=== PATIENT | female | born 1980 | race Caucasian/White ===

== ENCOUNTER 2020-12-22 10:28 | Outpatient (REF) | payer OTHER, SELFPAY | END 2020-12-22 10:29 | disposition home or self-care (01) | LOC: HO.HAP 10:28 | PROVIDERS: Visit Provider Internal Medicine | DX: Z46.1 Encounter for fitting and adjustment of hearing aid (principal); H90.3 Sensorineural hearing loss, bilateral | CPT/HCPCS: 92593 ==

== ENCOUNTER 2021-01-05 10:57 | Outpatient (REF) | payer OTHER, SELFPAY | END 2021-01-05 10:58 | disposition home or self-care (01) | LOC: HO.HAP 10:57 | PROVIDERS: PCP Internal Medicine; Visit Provider Internal Medicine | DX: Z13.89 Encounter for screening for other disorder (principal) ==

== ENCOUNTER 2021-01-06 11:26 | Outpatient (REF) | payer OTHER, SELFPAY ==
--- NOTE | ~2021-01-06 | MM_ITS ---
EXAMINATION: MM SCREENING DIGITAL BREAST TOMOSYNTHESIS, BILATERAL CLINICAL INFORMATION: Screening. Asymptomatic. The lifetime risk of breast cancer based on the Tyrer-Cuzick Model is 12.6%. COMPARISON: Mammography: None TECHNIQUE: Digital breast tomosynthesis is performed in both the craniocaudal and mediolateral oblique views along with computer-aided detection (CAD). Synthesized 2D images are generated from the tomosynthesis. FINDINGS: There are scattered areas of fibroglandular density (ACR BI-RADS breast composition Category b). There are no significant masses, abnormal calcifications, or other abnormalities. MM/MM tomosynthesis screening BI IMPRESSION: There are no significant changes from prior study. ASSESSMENT: BI-RADS 1: Negative RECOMMENDATION: Routine annual mammography screening. This patient's information was entered into a reminder system with a target due date for their next mammogram.
== END 2021-01-06 11:27 | disposition home or self-care (01) ==
LOC: HO.MAMMO 11:26
PROVIDERS: PCP Internal Medicine; Visit Provider Internal Medicine
DX: Z12.31 Encounter for screening mammogram for malignant neoplasm of breast (principal)
CPT/HCPCS: 77063; 77067

== ENCOUNTER 2021-01-20 13:25 | Outpatient (REF) | payer OTHER, SELFPAY | END 2021-01-20 13:26 | disposition home or self-care (01) | LOC: HO.HAP 13:25 | PROVIDERS: Visit Provider Internal Medicine | DX: Z46.1 Encounter for fitting and adjustment of hearing aid (principal); H90.6 Mixed conductive and sensorineural hearing loss, bilateral | CPT/HCPCS: V5014; V5266 ==

== ENCOUNTER 2021-03-01 10:11 | Outpatient (REF) | payer OTHER, SELFPAY ==
[2021-03-01 11:37] LABS: MANUAL DIFF FLAG NO
[2021-03-01 11:51] LABS: Basophils Absolute Auto 0.1 X10*3/uL (0.0-0.2); Basophils Percent Auto 0.4 % (0-2); Eosinophils Percent Auto 0.3 % (0-4); Hematocrit 46.3 % (37-47); Hemoglobin 15.6 g/dl (12.0-16.0); Imm Gran Abs Auto 0.05 X10*3/uL (0.00-0.03); Imm Gran Pct Auto 0.4 % (0.0-0.4); Lymphocytes Absolute Auto 1.2 X10*3/uL (1.2-4.9); Lymphocytes Percent Auto 9.5 % (20-40); Mean Corpuscular HGB Conc 33.7 g/dl (31.0-35.0); Mean Corpuscular Hemoglobin 32.9 pg (27.0-33.0); Mean Corpuscular Volume 97.7 fL (80-98); Mean Platelet Volume 10.5 fL (9.4-12.3); Monocytes Absolute Auto 0.6 X10*3/uL (0.1-1.2); Monocytes Percent Auto 4.5 % (2-11); Neutrophils Percent Auto 84.9 % (45-73); Platelet Count 352 X10*3/uL (160-400); Red Blood Count 4.74 X10*6/uL (4.20-5.50); Red Cell Distribution Width 12.5 % (11.0-16.0)
[2021-03-01 12:35] LABS: Alanine Aminotransferase 10 U/L (0-31); Albumin Level 4.4 g/dL (3.5-5.0); Alkaline Phosphatase 68 U/L (39-117); Anion Gap 15 (12-20); Aspartate Amino Transferase 14 U/L (5-31); Bilirubin Total 1.8 mg/dL (0.0-1.0); Blood Urea Nitrogen 11 mg/dL (9-16); Calcium 9.5 mg/dL (8.4-10.2); Carbon Dioxide 26 mmol/L (22-29); Chloride 104 mmol/L (96-108); Cholesterol 154 mg/dL; Estimated Glomerular Filt Rate > 60; Glucose Random 104 mg/dL (60-115); Potassium 3.9 mmol/L (3.3-5.1); Sodium 141 mmol/L (135-145); Total Protein 7.2 g/dL (6.5-8.0)
== END 2021-03-01 10:12 | disposition home or self-care (01) ==
LOC: HO.LAB 10:11
PROVIDERS: PCP Internal Medicine; Visit Provider Internal Medicine
DX: Z00.00 Encounter for general adult medical examination without abnormal findings (principal); R63.4 Abnormal weight loss
CPT/HCPCS: 36415; 80053; 82465; 85025

== ENCOUNTER 2021-03-03 11:57 | Outpatient (REF) | payer OTHER, SELFPAY ==
[2021-03-03 12:38] LABS: MANUAL DIFF FLAG NO
[2021-03-03 12:43] LABS: Basophils Absolute Auto 0.1 X10*3/uL (0.0-0.2); Basophils Percent Auto 0.5 % (0-2); Eosinophils Percent Auto 0.4 % (0-4); Hematocrit 44.7 % (37-47); Hemoglobin 15.1 g/dl (12.0-16.0); Imm Gran Abs Auto 0.03 X10*3/uL (0.00-0.03); Imm Gran Pct Auto 0.3 % (0.0-0.4); Lymphocytes Absolute Auto 1.9 X10*3/uL (1.2-4.9); Lymphocytes Percent Auto 18.9 % (20-40); Mean Corpuscular HGB Conc 33.8 g/dl (31.0-35.0); Mean Corpuscular Volume 97.8 fL (80-98); Monocytes Absolute Auto 0.4 X10*3/uL (0.1-1.2); Monocytes Percent Auto 3.7 % (2-11); Neutrophils Absolute Auto 7.6 X10*3/uL (2.0-8.3); Neutrophils Percent Auto 76.2 % (45-73); Platelet Count 328 X10*3/uL (160-400); Red Blood Count 4.57 X10*6/uL (4.20-5.50); Red Cell Distribution Width 12.4 % (11.0-16.0)
[2021-03-03 13:17] LABS: C Reactive Protein 0.09 mg/dL (< or = 0.50)
== END 2021-03-03 11:58 | disposition home or self-care (01) ==
LOC: HO.LAB 11:57
PROVIDERS: PCP Internal Medicine; Visit Provider Internal Medicine
DX: D72.829 Elevated white blood cell count, unspecified (principal); R53.83 Other fatigue
CPT/HCPCS: 36415; 85025; 86140

== ENCOUNTER 2021-03-04 10:35 | Outpatient (REF) | payer OTHER, SELFPAY ==
[2021-03-04 12:18] LABS: C Reactive Protein 0.06 mg/dL (< or = 0.50)
[2021-03-04 12:34] LABS: Free T4 (Free Thyroxine) 1.22 ng/dL (0.71-1.85); Thyroid Stimulating Hormone 1.14 uIU/mL (0.32-4.0)
[2021-03-04 13:22] LABS: Vitamin B12 422 pg/mL (200-900)
[2021-03-04 13:47] LABS: CT PCR NOT DETECTED (Not Detect.); NG PCR NOT DETECTED (Not Detect.)
[2021-03-05 08:28] LABS: Syphilis Screen Nonreactive (Nonreactive)
== END 2021-03-04 10:36 | disposition home or self-care (01) ==
LOC: HO.LAB 10:35
PROVIDERS: PCP Internal Medicine; Visit Provider Internal Medicine
DX: Z11.3 Encounter for screening for infections with a predominantly sexual mode of transmission (principal); R51.9 Headache, unspecified; R53.83 Other fatigue; R55 Syncope and collapse
CPT/HCPCS: 82550; 82607; 84439; 84443; 86140; 86780; 87491; 87591

== ENCOUNTER 2021-03-15 14:08 | Outpatient (REF) | payer OTHER, SELFPAY ==
--- NOTE | ~2021-03-15 | CT_ITS ---
EXAMINATION: CT HEAD WITHOUT CONTRAST CLINICAL INFORMATION: New onset headache. BP changes. COMPARISON: None. TECHNIQUE: Contiguous axial imaging was performed from the skull base to vertex without intravenous administration of contrast. This CT examination was performed using dose optimization techniques as appropriate, variously including the following: *Automated exposure control *Adjustment of mA and/or kV according to patient size (this includes techniques or standardized protocols for targeted exams where dose is matched to indication/reason for exam; i.e. extremities or head) *Use of iterative reconstruction technique DLP: 616 mGy-cm. FINDINGS: There is no evidence of acute intracranial hemorrhage or territorial infarction. No abnormal mass effect or midline shift is seen. Anderson to white matter differentiation is well preserved. No extra-axial fluid collections are identified. The ventricles are normal in size. There is no abnormal attenuation within the brain parenchyma. The osseous structures and soft tissues are normal. The mastoid air cells and visualized portions of the paranasal sinuses are well aerated. CT/CT head/brain wo con IMPRESSION: No acute intracranial pathology.
== END 2021-03-15 14:09 | disposition home or self-care (01) ==
LOC: HO.CT 14:08
PROVIDERS: PCP Internal Medicine; Visit Provider Internal Medicine
DX: G44.209 Tension-type headache, unspecified, not intractable (principal); R42 Dizziness and giddiness
CPT/HCPCS: 70450

== ENCOUNTER 2021-04-12 14:13 | Outpatient (REF) | payer OTHER, SELFPAY ==
[2021-04-13 01:59] LABS: CT PCR NOT DETECTED (Not Detect.); NG PCR NOT DETECTED (Not Detect.)
[2021-04-13 09:14] LABS: BV Int Neg Control Negative (Negative)
[2021-04-13 09:15] LABS: BV Int Pos Control Positive (Positive)
[2021-04-14 21:01] LABS: C. Trachomatis RNA TMA, Throat NOT DETECTED (NOT DETECTED); N. gonorrhoeae RNA TMA, Throat NOT DETECTED (NOT DETECTED)
[2021-04-15 06:17] LABS: HPV mRNA E6/E7 rflx Not Detected (Not Detected)
== END 2021-04-12 14:14 | disposition home or self-care (01) ==
LOC: HO.LAB 14:13
PROVIDERS: PCP Internal Medicine; Visit Provider Advanced Practice Midwife
DX: Z01.419 Encounter for gynecological examination (general) (routine) without abnormal findings (principal); Z11.51 Encounter for screening for human papillomavirus (HPV); Z11.3 Encounter for screening for infections with a predominantly sexual mode of transmission; Z20.2 Contact with and (suspected) exposure to infections with a predominantly sexual mode of transmission; A63.0 Anogenital (venereal) warts; Z87.42 Personal history of other diseases of the female genital tract
CPT/HCPCS: 81025; 87480; 87491; 87510; 87591; 87624; 87660; 88142

== ENCOUNTER 2021-04-14 13:02 | Outpatient (REF) | payer OTHER, SELFPAY ==
[2021-04-14 14:54] LABS: Syphilis Screen Nonreactive (Nonreactive)
[2021-04-15 09:20] LABS: HBsAGNum1 0.22 S/CO (0.00-0.99); HIV AB/AG Nonreactive (Nonreactive); HIV Num 1 0.07 S/CO (0.00-0.99); Hepatitis B Surface Antigen Negative (Negative); ~Hepatitis C Antibody Nonreactive (Nonreactive)
== END 2021-04-14 13:03 | disposition home or self-care (01) ==
LOC: HO.LAB 13:02
PROVIDERS: PCP Internal Medicine; Visit Provider Advanced Practice Midwife
DX: A63.0 Anogenital (venereal) warts (principal); Z20.2 Contact with and (suspected) exposure to infections with a predominantly sexual mode of transmission; Z87.42 Personal history of other diseases of the female genital tract; Z30.012 Encounter for prescription of emergency contraception
CPT/HCPCS: 36415; 86780; 86803; 87340; 87389

== ENCOUNTER 2021-06-04 10:27 | Outpatient (REF) | payer OTHER, SELFPAY ==
[2021-06-10 06:41] LABS: HPV mRNA E6/E7 rflx Not Detected (Not Detected)
== END 2021-06-04 10:28 | disposition home or self-care (01) ==
LOC: HO.LAB 10:27
PROVIDERS: PCP Internal Medicine; Visit Provider Advanced Practice Midwife
DX: Z12.4 Encounter for screening for malignant neoplasm of cervix (principal); Z11.51 Encounter for screening for human papillomavirus (HPV); A63.0 Anogenital (venereal) warts; K64.9 Unspecified hemorrhoids
CPT/HCPCS: 56501; 87624; 88142; 99212

== ENCOUNTER → 2021-06-11 13:08 | Outpatient (BNVA) | payer OTHER, SELFPAY | PROVIDERS: PCP Internal Medicine; Visit Provider Advanced Practice Midwife | DX: A63.0 Anogenital (venereal) warts (principal) | CPT/HCPCS: 99212 ==

== ENCOUNTER → 2021-07-21 13:33 | Outpatient (BNVA) | payer OTHER, SELFPAY | PROVIDERS: PCP Internal Medicine; Visit Provider Advanced Practice Midwife | DX: A63.0 Anogenital (venereal) warts (principal) | CPT/HCPCS: 56501; 99212 ==

== ENCOUNTER → 2021-09-16 10:32 | Outpatient (BNVA) | payer OTHER, SELFPAY | PROVIDERS: PCP Internal Medicine; Referring Provider Internal Medicine; Visit Provider Internal Medicine Gastroenterology | DX: A63.0 Anogenital (venereal) warts (principal); K64.9 Unspecified hemorrhoids | CPT/HCPCS: 99202 ==

== ENCOUNTER 2021-12-06 12:18 | Day surgery (SDC) | payer OTHER, SELFPAY ==
[2021-12-06 12:39] VITALS: BMI 26.0
[2021-12-06 12:48] VITALS: BP 122/79; PULSE 91; RESP 18; TEMP 37; O2SAT 96; BMI 26.0
[2021-12-06 12:56] LABS: UPreg QC Valid YES; Urine Pregnancy NEGATIVE (NEGATIVE)
--- NOTE | 2021-12-06 13:04 | MHC.SHP ---
Pre-Procedural Eval Section A Date of Service: 12/06/21 The patient is an INPATIENT: No The History & Physical has been completed within 30 days and I have reviewed it.: No Section B Chief Complaint: Colon cancer screening Anogenital (venereal) warts Details of Present Illness: Colon cancer screen, chronic constipation, rectal bleeding, hemorrhoids, condyloma acuminata Relevant Family History (Specify if Yes): No Relevant Social History: Tobacco Use Present Medications: see Short Stay Collaborative assessment Medical History: No relevant PMH History of Previous Operations: No relevant previous surgery Allergies: Allergies Allergy/AdvReac Type Severity Reaction Status Date / Time No Known Allergies Allergy Verified 09/16/21 10:36 Review of Systems Sugical H&P ROS: Negative: Constitution, Cardiovascular and Respiratory and Yes, Specify: Gastrointestinal Exam Surgical H&P Exam: Normal: Heart, Normal: Lungs, Normal: Extremities and Normal: Abdomen Plan Diagnosis/Plan: Unchanged I have reviewed the history and physical and performed a pertinent physical examination on my patient. No changes have occurred unless specified.
--- NOTE | 2021-12-06 13:05 | P.BOP_ITS ---
Brief Operative Note Date of Service: 12/06/21 Pre-op diagnosis: Colon cancer screen, chronic constipation, rectal bleeding, hemorrhoids, condyloma acuminata Post-op diagnosis: other (Colon polyp, diverticulosis, hemorrhoids, anal warts) Procedure: COLONOSCOPY TILL CECUM WITH BIOPSIES AND SNARE POLYPECTOMY Consent: Indications for the procedure and potential complications of bleeding, perforation, reaction to medications and missed diagnosis were discussed with the patient and informed consent was obtained. Instrument: Olympus PCF H 190 L variable stiffness pediatric colonoscope Monitoring: Vital signs and clinical assessment, intermittent blood pressure monitoring, continuous EKG monitoring, Pulse oximetry and Carbon Dioxide monitoring were done throughout the procedure. Colon withdrawl time was 12 minutes. Procedure: The patient was placed in the left lateral decubitis position and pre-procedure medications were administered. After a digital rectal examination of the ano-rectum, the video colonoscope was inserted into the rectum and advanced through the colon to the cecum. The colonoscope was slowly withdrawn in a retrograde panoramic fashion and the colon mucosa was carefully examined including a retroflexed view of the rectum. Findings and interventions are described below. Procedure Difficulty: Without difficulty Findings: Terminal Ileum: Not evaluated Cecum: Normal Ascending Colon: Normal Transverse Colon: Normal Descending Colon: Normal Sigmoid Colon: A 10 mm sessile polyp removed with a cold snare and small amount of residual polyp removed with a cold bx. Moderate diverticulosis Rectum: Normal Ano-rectum: Moderate internal hemorrhoids Perianal warts. Colon preparation: Good Impression and Post Procedure Diagnosis: Colonoscopy Findings: One medium sized polyp removed Moderate diverticulosis seen in the Sigmoid colon Moderate hemorrhoids on retroflexed exam. Perianal warts. Plan: Await pathology results Patient has an appointment on 02/10/22 in the GI Clinic with Chavez Woods M.D.. Repeat Colonoscopy interval based on path results - in 3 years if polyps are adenomatous and 10 years if polyps are hyperplastic. Above findings were reviewed with the patient and colon polyps, hemorrhoids and diverticulosis handouts were given in the discharge area. She is being referred to Dr Stanton for management of rica-anal warts. Surgeon: Chavez Woods MD Anesthesia: MAC (Dr Martinez) Was an Package Worker used for this Procedure?: Yes Package Worker: Paty Valerio Estimated blood loss (mL): 0 Pathology: other (A. sigmoid polyp) Condition: stable Disposition: PACU
--- NOTE | 2021-12-06 13:08 | HO.ANESPROP2 ---
[facility] Active Problems Active Problems: All Active Problems (Updated 06/17/21 @ 11:49 by Shantal Guzman CNM) Hemorrhoids (Acute) Condyloma acuminata (Acute) Encounter for emergency contraception (Acute) Hx of abnormal cervical Pap smear (Acute) Potential exposure to STD (Acute) Family History Family history of problems with anesthesia: No Surgical History History of Problems with Anesthesia: No Social History Social History Are you a primary healthcare economics manager to a significant other at home: No Do you presently have visiting nurse or other home services: No Alcohol intake: current Alcohol intake frequency: 0-2 drinks per day Patient Tobacco Use Status: Current everyday Tobacco user Tobacco use type: Cigarette Cigarette Packs Per Day: 0.5 Cigarettes Per Day: 10.0 Smoked in Last 30 Days: Yes Patient Interested in Nicotine Replacement: No Patient Given Instructions on How to Stop Smoking: No Second Hand Smoke Exposure: No Use of substances other than those prescribed or required for medical reasons: No Have you been hit, kicked, punched, or otherwise hurt by someone within the past year? If so, by whom?: No Are you DNR?: No Advance Directives: No Advance Directives Information Provided: Yes Recently lost weight without trying: No Nutrition Risks: No Nutritional Risk Patient : No Gender identity: Female Meds Allergies Allergy/AdvReac Type Severity Reaction Status Date / Time No Known Allergies Allergy Verified 09/16/21 10:36 Exam Exam Date and Time: December 06, 2021 1308 Height,Weight and Vital Signs: Height 5 ft 3 in Weight 66.678 kg Last Vital Signs Temp 98.6 F 12/06/21 12:48 Pulse 91 12/06/21 12:48 Resp 18 12/06/21 12:48 BP 122/79 12/06/21 12:48 Pulse Ox 96 12/06/21 12:48 Pertinent Lab Results Pertinent Lab Results: Laboratory Tests 12/06/21 12:40 Urine Test NEGATIVE Airway Mallampati Class: II TM Dist: >3cm Neck ROM: Full Heart: rrr Lungs: cta Assessment and Plan Assessment Anesthesia Assessment: Anesthesia Plan Discussed and Chart Reviewed Final Anesthetic Review Family History of Problems with Anesthesia: No History of Problems with Anesthesia: No NPO: Yes ASA Class: II Final Preanesthetic Review: No Changes in Pt Med Stat, Meds/Allgs Chart Reviewed and Consent Obtained/Reviewed Patient Risk: Intermediate Procedure Risk: Intermediate Anesthetic Plan Anesthetic Plan: MAC: Disposition: Standard PACU
--- NOTE | 2021-12-06 13:59 | W.PM.OPN ---
Operative Note Operative Note Date of Service: 12/06/21 Narrative: Pre-op diagnosis: Colon cancer screen, chronic constipation, rectal bleeding, hemorrhoids, condyloma acuminata Post-op diagnosis:?other (Colon polyp, diverticulosis, hemorrhoids, anal warts) Procedure: COLONOSCOPY TILL CECUM WITH BIOPSIES AND SNARE POLYPECTOMY Consent: Indications for the procedure and potential complications of bleeding, perforation, reaction to medications and missed diagnosis were discussed with the patient and informed consent was obtained. Instrument: Olympus PCF H 190 L variable stiffness pediatric colonoscope Monitoring: Vital signs and clinical assessment, intermittent blood pressure monitoring, continuous EKG monitoring, Pulse oximetry and Carbon Dioxide monitoring were done throughout the procedure. Colon withdrawl time was 12 minutes. Procedure: The patient was placed in the left lateral decubitis position and pre-procedure medications were administered. After a digital rectal examination of the ano-rectum, the video colonoscope was inserted into the rectum and advanced through the colon to the cecum. The colonoscope was slowly withdrawn in a retrograde panoramic fashion and the colon mucosa was carefully examined including a retroflexed view of the rectum. Findings and interventions are described below. Procedure Difficulty: Without difficulty Findings: Terminal Ileum: Not evaluated Cecum:? Normal Ascending Colon:? Normal Transverse Colon:? Normal Descending Colon:? Normal Sigmoid Colon:? A 10 mm sessile polyp removed with a cold snare and small amount of residual polyp removed with a cold bx.? Moderate diverticulosis Rectum:? Normal Ano-rectum:? Moderate internal hemorrhoids Perianal warts. Colon preparation:? Good? Impression and Post Procedure Diagnosis: Colonoscopy Findings: One medium sized polyp removed Moderate diverticulosis seen in the Sigmoid colon Moderate hemorrhoids on retroflexed exam. Perianal warts. Plan: Await pathology results Patient has an appointment on 02/10/22 in the GI Clinic with Chavez Woods M.D.. Repeat Colonoscopy interval based on path results - in 3 years if polyps are adenomatous and 10 years if polyps are hyperplastic. Above findings were reviewed with the patient and colon polyps, hemorrhoids and diverticulosis handouts were given in the discharge area. She is being referred to Dr Stanton for management of rica-anal warts. Surgeon: Chavez Woods MD Anesthesia:?MAC (Dr Martinez) Was an Electronic Components Assembler used for this Procedure?:?Yes Electronic Components Assembler:?Paty Valerio Estimated blood loss (mL):?0 Pathology:?other (A. sigmoid polyp) Condition:?stable Disposition:?PACU
[2021-12-06 14:00] VITALS: BP 100/60; PULSE 77; RESP 16; TEMP 36.2; O2SAT 93
[2021-12-06 14:15] VITALS: BP 115/75; PULSE 63; RESP 18; TEMP 36.6; O2SAT 99
== END 2021-12-06 15:01 | disposition home or self-care (01) ==
PROVIDERS: Anesthesiology; PCP Internal Medicine; Visit Provider Internal Medicine Gastroenterology
PROC: 0DJD8ZZ Inspection of Lower Intestinal Tract, Via Natural or Artificial Opening Endoscopic (ICD-10-PCS; CPT 45378; principal; 2021-12-06 13:30)
DX: Z12.11 Encounter for screening for malignant neoplasm of colon (principal); D12.5 Benign neoplasm of sigmoid colon; K57.30 Diverticulosis of large intestine without perforation or abscess without bleeding; K64.8 Other hemorrhoids; A63.0 Anogenital (venereal) warts; K59.09 Other constipation; F17.210 Nicotine dependence, cigarettes, uncomplicated
CPT/HCPCS: 45385; 45380; 81025; 88305

== ENCOUNTER → 2022-02-10 13:32 | Outpatient (BNVA) | payer OTHER, SELFPAY | PROVIDERS: PCP Internal Medicine; Visit Provider Internal Medicine Gastroenterology | DX: K64.9 Unspecified hemorrhoids (principal); A63.0 Anogenital (venereal) warts; K57.30 Diverticulosis of large intestine without perforation or abscess without bleeding; Z86.010 Personal history of colon polyps | CPT/HCPCS: 99212 ==

== ENCOUNTER 2022-02-23 11:55 | Outpatient (REF) | payer OTHER, SELFPAY ==
--- NOTE | ~2022-02-23 | MM_ITS ---
EXAMINATION: MM SCREENING DIGITAL BREAST TOMOSYNTHESIS, BILATERAL CLINICAL INFORMATION: Screening. Asymptomatic. The lifetime risk of breast cancer based on the Tyrer-Cuzick Model is 12%. COMPARISON: Mammography: 01/06/2021 (baseline) TECHNIQUE: Digital breast tomosynthesis is performed in both the craniocaudal and mediolateral oblique views along with computer-aided detection (CAD). Synthesized 2D images are generated from the tomosynthesis. FINDINGS: There are scattered areas of fibroglandular density (ACR BI-RADS breast composition Category b). There are no significant masses, abnormal calcifications, or other abnormalities. Parenchymal pattern is similar to prior baseline exam. The axilla and skin contours are unremarkable. MM/MM tomosynthesis screening BI IMPRESSION: No mammographic evidence of malignancy. ASSESSMENT: BI-RADS 1: Negative RECOMMENDATION: Routine annual mammography screening. This patient's information was entered into a reminder system with a target due date for their next mammogram.
== END 2022-02-23 11:56 | disposition home or self-care (01) ==
LOC: HO.MAMMO 11:55
PROVIDERS: Visit Provider Internal Medicine
DX: Z12.31 Encounter for screening mammogram for malignant neoplasm of breast (principal)
CPT/HCPCS: 77063; 77067

== ENCOUNTER → 2022-03-23 12:57 | Outpatient (BNVA) | payer OTHER, SELFPAY | PROVIDERS: PCP Internal Medicine; Visit Provider Surgery | DX: K62.0 Anal polyp (principal) | CPT/HCPCS: 46600; 99202 ==

== ENCOUNTER 2022-04-08 07:58 | Day surgery (SDC) | payer OTHER, SELFPAY ==
[2022-04-05 09:56] VITALS: BMI 26.8
--- NOTE | 2022-04-07 11:01 | HO.ANESPROP2 ---
Documented by User: Allyssa Jain NP 04/07/22 11:01 HPI - Anesthesia Eval Consult details Narrative: 41yo F for EUA,removal of anal lesions PMFSH Active Problems Active Problems: All Active Problems (Updated 03/23/22 @ 13:27 by Heriberto Stanton MD) Anal polyp (Acute) History of colon polyps (Acute) Hemorrhoids (Acute) Condyloma acuminata (Acute) Encounter for emergency contraception (Acute) Hx of abnormal cervical Pap smear (Acute) Potential exposure to STD (Acute) Past Medical History Medical History (Updated 03/23/22 @ 13:27 by Heriberto Stanton MD) Anal polyp Family History Family History Father Throat cancer Family history of problems with anesthesia: No Surgical History Surgical History Hx of colonoscopy History of Problems with Anesthesia: No Social History Social History Are you a primary transitions rn care coordinator to a significant other at home: No Do you presently have visiting nurse or other home services: No Alcohol intake: current Alcohol intake frequency: 0-2 drinks per day Patient Tobacco Use Status: Current everyday Tobacco user Tobacco use type: Cigarette Cigarette Packs Per Day: 0.5 Cigarettes Per Day: 10.0 Smoked in Last 30 Days: Yes Second Hand Smoke Exposure: No Use of substances other than those prescribed or required for medical reasons: Yes Are you DNR?: No Advance Directives: No Advance Directives Information Provided: Yes Patient : No Gender identity: Female Meds Allergies Allergy/AdvReac Type Severity Reaction Status Date / Time No Known Allergies Allergy Verified 03/23/22 13:02 Exam Exam Date and Time: April 07, 2022 1101 Height,Weight and Vital Signs: Height 5 ft 3 in Weight 68.606 kg Assessment and Plan Assessment Anesthesia Assessment: Chart Reviewed Final Anesthetic Review Family History of Problems with Anesthesia: No History of Problems with Anesthesia: No Documented by User: Alfredo Guadalupe MD 04/08/22 10:01 [facility] Past Medical History Medical History (Updated 03/23/22 @ 13:27 by Heriberto Stanton MD) Anal polyp Patient : No Family History Family History Father Throat cancer Family history of problems with anesthesia: No Surgical History Surgical History Hx of colonoscopy History of Problems with Anesthesia: No Social History Social History Are you a primary transitions rn care coordinator to a significant other at home: No Do you presently have visiting nurse or other home services: No Alcohol intake: current Alcohol intake frequency: 0-2 drinks per day Patient Tobacco Use Status: Current everyday Tobacco user Tobacco use type: Cigarette Cigarette Packs Per Day: 0.5 Cigarettes Per Day: 10.0 Smoked in Last 30 Days: Yes Second Hand Smoke Exposure: No Use of substances other than those prescribed or required for medical reasons: Yes Are you DNR?: No Advance Directives: No Advance Directives Information Provided: Yes Patient : No Gender identity: Female Meds Allergies Allergy/AdvReac Type Severity Reaction Status Date / Time No Known Allergies Allergy Verified 03/23/22 13:02 Exam Airway Mallampati Class: I TM Dist: >3cm Neck ROM: Full Loose/Missing/Broken Teeth: No Heart: ok Lungs: ok Assessment and Plan Assessment Anesthesia Assessment: Anesthesia Plan Discussed and Chart Reviewed Final Anesthetic Review Family History of Problems with Anesthesia: No History of Problems with Anesthesia: No NPO: Yes ASA Class: II Final Preanesthetic Review: No Changes in Pt Med Stat, Meds/Allgs Chart Reviewed, Consent Obtained/Reviewed and Anes Risks/Benef Reviewed Patient Risk: Low Procedure Risk: Intermediate Anesthetic Plan Anesthetic Plan: GA and Agree w/ Assess. and Plan Disposition: Standard PACU
[2022-04-08 08:20] VITALS: BMI 26.5
[2022-04-08 08:29] VITALS: BP 115/72; PULSE 71; RESP 16; TEMP 36.1; O2SAT 96
[2022-04-08 08:36] LABS: UPreg QC Valid YES; Urine Pregnancy NEGATIVE (NEGATIVE)
[2022-04-08] MEDS: Lactated Ringers 1,000 ML 100 ML IVCONT (08:51)
--- NOTE | 2022-04-08 09:33 | MHC.SHP ---
Pre-Procedural Eval Section A Date of Service: 04/08/22 The patient is an INPATIENT: No The History & Physical has been completed within 30 days and I have reviewed it.: Yes Section B Chief Complaint: Anal polyp Allergies: Allergies Allergy/AdvReac Type Severity Reaction Status Date / Time No Known Allergies Allergy Verified 03/23/22 13:02 Plan I have reviewed the history and physical and performed a pertinent physical examination on my patient. No changes have occurred unless specified.
[2022-04-08 10:50] VITALS: BP 129/80; PULSE 85; RESP 20; TEMP 36.3; O2SAT 92
[2022-04-08 10:55] VITALS: BP 120/78; PULSE 66; RESP 18; O2SAT 96
[2022-04-08 11:00] VITALS: BP 127/80; PULSE 60; RESP 18; O2SAT 97
[2022-04-08 11:05] VITALS: BP 115/67; PULSE 62; RESP 16; O2SAT 98
--- NOTE | 2022-04-08 11:06 | P.OP_ITS ---
Operative Note Operative Note Date of Service: 04/08/22 Narrative: Preop diagnosis: anal lesions Postop diagnosis: Anal lesions, likely chronically sclerosed external hemorrhoids Procedure: Exam under anesthesia, hemorrhoidectomy x2 columns Surgeon: Heriberto Stanton MD Patient is a 41-year-old female who has lesions on the anal verge which is had for several years. She was seen in the office. She had what appeared to be polypoid lesions, the anal verge and extending into the anal canal that appeared to be consistent with chronically sclerosed external hemorrhoids. She understood the technique of exam under anesthesia and removal of this lesions. She was aware of the risks, benefits, and alternatives She was brought to the operating room. She was placed in prone karen-knife position. The buttocks were retracted with wide tape laterally. The perianal area was prepped and draped in the usual sterile fashion. A surgical time-out was done. The patient received Cefotan 2 g IV preoperatively. Again this polypoid lesions on the left and right side were seen. The 1 on the right side appeared to be about cm in height I infiltrated the perianal area with lidocaine 1%. I inserted the Luciano-Knox retractor in the anal canal and examined the anal canal circumferentially. There were no other lesions within the anal canal. Again this large polypoid lesion 1 on the left and 1 on the right were noted. This appeared to be consistent with chronically sclerosis for hemorrhoids. I retracted the lesion on the left with a Rhoades clamp. I made a pelucr-ux-usqhh stitch near its pedicle towards the right line. This was made using chromic 3-0. I made an incision around this lesion to the perianal skin and excise this lesion above the plane of the sphincters using scissors. I closed the incision with in chromic 3-0 sutures. Additional hemostatic sutures were also placed I applied a Rhoades grasper as well on the lesion on the right to retract this. I made a uvkyia-mf-lmmar stitch at the pedicle the distal anal canal using a chromic 3-0 and made an incision around this lesion to the perianal skin using blade 15. I excised this lesion using scissors. I closed the incision with a running chromic 3-0 stitch. I observed for hemostasis. Once hemostasis was ensured, proceeded to then inserted rolled Gelfoam into the anal canal for additional hemostasis. I infiltrated the perianal area with Marcaine 0.5% for postop analgesia The procedure was then completed The patient tolerated the procedure well. There were no complications noted. Initial and final counts of sponges and instruments were correct. Estimated blood loss was minimal The patient was extubated without difficulty and transferred to the recovery room with stable vital signs. Breast [place] Node Biopsy Substrate(s) used for sentinel node biopsy in the neoadjuvant setting: Dye and Radiotracer General Surg. - Synoptic Notes Breast [place] Node Biopsy Substrate(s) used for sentinel node biopsy in the neoadjuvant setting: Dye and Radiotracer
[2022-04-08 11:20] VITALS: BP 120/77; PULSE 70; RESP 16; TEMP 36.3; O2SAT 95
== END 2022-04-08 11:45 | disposition home or self-care (01) ==
PROVIDERS: Nurse Practitioner; PCP Internal Medicine; Visit Provider Surgery
PROC: (CPT 46250; principal; 2022-04-08 09:40)
DX: K64.8 Other hemorrhoids (principal); R87.613 High grade squamous intraepithelial lesion on cytologic smear of cervix (HGSIL)
CPT/HCPCS: 46250; 81025; 88304; J1100; J1885; J2250; J2405; J2795; J3010

== ENCOUNTER → 2022-04-21 10:50 | Outpatient (BNVA) | payer OTHER, SELFPAY | PROVIDERS: PCP Internal Medicine; Visit Provider Surgery | DX: K62.0 Anal polyp (principal); D01.3 Carcinoma in situ of anus and anal canal | CPT/HCPCS: 99212 ==

== ENCOUNTER 2022-04-26 08:30 | Outpatient (REF) | payer OTHER, SELFPAY ==
[2022-04-26 09:39] LABS: Hematocrit 45.3 % (37.0-47.0); Hemoglobin 15.4 g/dl (12.0-16.0); Mean Corpuscular Hemoglobin 32.8 pg (27.0-33.0); Mean Corpuscular Volume 96.4 fL (80.0-98.0); Mean Platelet Volume 9.9 fL (9.4-12.3); Platelet Count 379 X10*3/uL (160-400); Red Cell Distribution Width 12.3 % (11.0-16.0); White Blood Count 9.8 X10*3/uL (4.8-10.8)
[2022-04-26 10:28] LABS: HBc Num1 0.08 S/CO (0.00-0.79); HIV AB/AG Nonreactive (Nonreactive); HIV Num 1 0.06 S/CO (0.00-0.99); Hepatitis B Core Antibody Nonreactive (Nonreactive); ~HepC Num1 0.08 S/CO (0.00-0.79); ~Hepatitis C Antibody Nonreactive (Nonreactive)
[2022-04-26 10:37] LABS: Thyroid Stimulating Hormone 1.87 uIU/mL (0.32-4.0)
[2022-04-26 15:51] LABS: CT PCR NOT DETECTED (Not Detect.); NG PCR NOT DETECTED (Not Detect.)
[2022-04-27 05:43] LABS: Syphilis Screen Nonreactive (Nonreactive)
[2022-04-27 10:13] LABS: BV Int Neg Control Negative (Negative); BV Int Pos Control Positive (Positive)
== END 2022-04-26 08:31 | disposition home or self-care (01) ==
LOC: HO.LAB 08:30
PROVIDERS: PCP Internal Medicine; Visit Provider Advanced Practice Midwife
DX: Z11.3 Encounter for screening for infections with a predominantly sexual mode of transmission (principal); Z11.4 Encounter for screening for human immunodeficiency virus [HIV]; Z20.2 Contact with and (suspected) exposure to infections with a predominantly sexual mode of transmission; N93.9 Abnormal uterine and vaginal bleeding, unspecified; N92.1 Excessive and frequent menstruation with irregular cycle; N76.0 Acute vaginitis
CPT/HCPCS: 84443; 85027; 86704; 86780; 86803; 87389; 87480; 87491; 87510; 87591; 87660; 99212

== ENCOUNTER 2022-05-02 13:21 | Outpatient (REF) | payer OTHER, SELFPAY ==
--- NOTE | ~2022-05-02 | US_ITS ---
EXAMINATION: US PELVIS CLINICAL INFORMATION: Abnormal uterine and vaginal bleeding. COMPARISON: None. TECHNIQUE: Ultrasound of the pelvis is performed using both transabdominal and transvaginal transducers along with Doppler. Transvaginal imaging is performed due to inadequate visualization transabdominally. FINDINGS: UTERUS: The uterus is anteverted, anteflexed and measures 8.5 cm in length, 5.5 mL in AP and 6.5 cm in transverse dimension. The double wall endometrial thickness is 0.8 cm. There is a endometrial polyp in mid uterus measuring 0.8 x 0.6 x 0.7 cm. The uterus is smooth in contour and heterogeneous with cysts small hypoechoic to anechoic cystic areas and shadowing question adenomyosis. The uterus appears arcuate shape. No visible fibroid. There are small nabothian cysts in the cervix. ADNEXA: Both ovaries are visualized. There is normal color flow to the adnexa. There is no ovarian torsion. There is no pelvic ascites or fluid collection. Right ovary measures 3.3 x 2.6 x 3.1 cm and volume 13.9 mL there is. There is a dominant follicle cysts measuring 1.96 x 3.3 x 2.6 cm. The area is an exophytic or paraovarian cyst measuring 2.1 x 1.2 x 1.8 cm. Left ovary measures 10.6 x 6.4 x 9.3 cm and volume 335.5 mL. There is a complex cyst with septations measuring 9.3 x 6.3 x 8.8 cm. It contains a small daughter cyst as well. The complex cyst is vascular. There is no free fluid in the cul-de-sac. US/US pelvic and transvaginal IMPRESSION: Heterogeneous uterus with scattered hypoechoic areas/cystic areas suspicious for adenomyosis. 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 There is a endometrial polyp measuring 0.8 cm. Complex cyst with septations and increased vascularity left ovary. Right ovarian simple dominant follicle or cyst and a paraovarian cyst. Complex cyst with septation and a daughter cyst appears vascular in left ovary.
== END 2022-05-02 13:22 | disposition home or self-care (01) ==
LOC: HO.US 13:21
PROVIDERS: Visit Provider Obstetrics & Gynecology
DX: N93.9 Abnormal uterine and vaginal bleeding, unspecified (principal)
CPT/HCPCS: 76830; 76856

== ENCOUNTER 2022-05-16 13:01 | Outpatient (REF) | payer OTHER, SELFPAY ==
[2022-05-18 15:48] LABS: HPV mRNA E6/E7 rflx Not Detected (Not Detected)
== END 2022-05-16 13:02 | disposition home or self-care (01) ==
LOC: HO.LNP 13:01
PROVIDERS: PCP Internal Medicine; Visit Provider Advanced Practice Midwife
DX: Z01.419 Encounter for gynecological examination (general) (routine) without abnormal findings (principal); Z11.51 Encounter for screening for human papillomavirus (HPV); N83.292 Other ovarian cyst, left side; N84.0 Polyp of corpus uteri; N76.0 Acute vaginitis; B96.89 Other specified bacterial agents as the cause of diseases classified elsewhere; N93.9 Abnormal uterine and vaginal bleeding, unspecified; R68.82 Decreased libido
CPT/HCPCS: 36415; 81025; 86304; 87624; 88142; 99212

== ENCOUNTER 2022-05-16 13:58 | Outpatient (REF) | payer OTHER, SELFPAY ==
[2022-05-18 08:42] LABS: CA-125 7 U/mL (<35)
== END 2022-05-16 13:59 | disposition home or self-care (01) ==
LOC: HO.LAB 13:58
PROVIDERS: PCP Internal Medicine; Visit Provider Advanced Practice Midwife
DX: Z13.89 Encounter for screening for other disorder (principal)
CPT/HCPCS: 36415; 86304

== ENCOUNTER → 2022-12-12 11:20 | Outpatient (BNVA) | payer OTHER, SELFPAY | PROVIDERS: PCP Internal Medicine; Visit Provider Surgery | DX: D01.3 Carcinoma in situ of anus and anal canal (principal) | CPT/HCPCS: 46600; 99212 ==

== ENCOUNTER 2023-04-05 14:21 | Outpatient (REF) | payer OTHER, SELFPAY | END 2023-04-05 14:22 | disposition home or self-care (01) | LOC: HO.MAMMO 14:21 | PROVIDERS: Visit Provider Internal Medicine | DX: Z12.31 Encounter for screening mammogram for malignant neoplasm of breast (principal) | CPT/HCPCS: 77063; 77067 ==

== ENCOUNTER → 2023-04-05 14:30 | Outpatient (BNV) | payer OTHER, SELFPAY | PROVIDERS: Visit Provider Radiology Diagnostic Radiology | DX: Z12.31 Encounter for screening mammogram for malignant neoplasm of breast (principal) | CPT/HCPCS: 77063; 77067 ==

== ENCOUNTER 2023-06-12 12:56 | Outpatient (AMB) | payer OTHER, SELFPAY ==
--- NOTE | 2023-06-12 13:09 | A.OFFVIS_ITS ---
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 Patient c/o; reports no rectal bleeding, pressure or pain. 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 She denies any new complaints. She says she feels well overall. She denies any bleeding per rectum. She denies any problems or changes with bowel habits. [facility] Medical History Complex ovarian cyst AIN grade III Anal polyp Surgical History History of left salpingo-oophorectomy History of vulvectomy History of loop electrical excision procedure (LEEP) History of surgical removal of lesion (~2021) Hx of colonoscopy Family History Father Throat cancer Social History Are you a primary long term care pharmacist to a significant other at home: No Do you presently have visiting nurse or other home services: No Alcohol intake: current Alcohol intake frequency: 0-2 drinks per day Patient Tobacco Use Status: Current everyday Tobacco user Tobacco use type: Cigarette Cigarette Packs Per Day: 0.5 Cigarettes Per Day: 10.0 Second Hand Smoke Exposure: No Gender identity: Female Female Reproductive History Menstrual Age of Menarche: 12 Review of Systems Const Denies chills and Denies fever(s) Card Denies chest pain, Denies dyspnea and Denies dyspnea on exertion Resp Denies cough, Denies dyspnea and Denies dyspnea on exertion GI Denies hematochezia and Denies change in bowel habits Denies hematuria Musc Denies back pain and Denies limited range of motion Neuro Denies focal weakness and Denies convulsions Psych Denies depression and Denies mood swings Physical Exam Vital Signs: Last Vital Signs Pulse 80 06/12/23 13:10 BP 126/78 06/12/23 13:10 BMI result Body Mass Index 25.0 Const General: comfortable and no acute distress Orientation/consciousness: patient oriented x3 Neck Neck: Yes no lymphadenopathy Resp Auscultation: clear to auscultation bilaterally Cardio Rhythm: regular rhythm GI Other: Rectal exam shows small external hemorrhoids, anoscopy done as described Palpation (GI): Soft to palpation, nontender and no guarding Neuro General: patient oriented x3 Office Procedures Anoscopy she was in karen-knife position. The anoscope was gently inserted. A full examination of the entire anal canal was done. There were no new lesions. there was note of what appeared to be scar and granulation tissue her previous hemorrhoidectomy site on the right posterior. There was no induration on digital exam. There was no bleeding. 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 Anoscopy today did not reveal any new lesions or suggestion of disease in the anus. I will see her again in the office in about 6 months. I told her that we will do her anoscopy is regularly for about 2 years. I did instruct her to come to the office earlier than that if she has any concerns with regards to her anus. Coding Level of Care Code Est Pt Level 3 (88530) Diagnoses AIN grade III D01.3 CPT Codes Details - CPT: 45249-[id number] ([id number])
[2023-06-12 13:10] VITALS: BP 126/78; PULSE 80; BMI 25.0
== END 2023-06-12 13:32 | disposition home or self-care (01) ==
PROVIDERS: PCP Internal Medicine; Visit Provider Surgery
DX: D01.3 Carcinoma in situ of anus and anal canal (principal)
CPT/HCPCS: 46600; 99213

== ENCOUNTER → 2023-06-12 12:56 | Outpatient (BNVA) | payer OTHER, SELFPAY | PROVIDERS: Visit Provider Surgery | DX: D01.3 Carcinoma in situ of anus and anal canal (principal) | CPT/HCPCS: 46600; 99212 ==

== ENCOUNTER 2023-12-11 16:03 | Outpatient (REF) | payer OTHER, SELFPAY | END 2023-12-11 16:04 | disposition home or self-care (01) | LOC: HO.HAP 16:03 | PROVIDERS: Visit Provider Internal Medicine | DX: Z46.1 Encounter for fitting and adjustment of hearing aid (principal); H90.6 Mixed conductive and sensorineural hearing loss, bilateral | CPT/HCPCS: V5266 ==

== ENCOUNTER 2023-12-12 13:57 | Outpatient (AMB) | payer OTHER, SELFPAY ==
[2023-12-12 14:02] VITALS: BP 130/84; BMI 26.9
--- NOTE | 2023-12-12 14:02 | MHC.OFFVIS ---
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 She is doing well with concerns: Menses spacing out for several months up to 6-8 months, bleeding cycles last for 2 weeks. History of endometrial polyp prior to her surgery. History of left salpingo oophorectomy, right salpingectomy, endometrial curettage, vulvar excision for SHIRA [address] in [address] Calderón notes. Follows up q.[address] Calderón, has an appointment in June. 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 Menses skipping, up to 8-9 months, bleeds up to two weeks. Currently is sexually active. She denies vaginal itching and irritation. STI screening offered; declines. Denies family history of breast, ovarian or colon cancer. Last pap smear 2021, unsatisfactory. [facility] Medical History Complex ovarian cyst AIN grade III Anal polyp Surgical History History of hysteroscopy History of left salpingo-oophorectomy History of vulvectomy History of loop electrical excision procedure (LEEP) History of surgical removal of lesion (~2021) Hx of colonoscopy Family History Father Throat cancer Paternal Grandmother Breast cancer Social History Are you a primary pet care worker to a significant other at home: No Do you presently have visiting nurse or other home services: No Alcohol intake: current Alcohol intake frequency: 0-2 drinks per day Patient Tobacco Use Status: Current everyday Tobacco user Tobacco use type: Cigarette Cigarette Packs Per Day: 0.5 Cigarettes Per Day: 10.0 Second Hand Smoke Exposure: No Gender identity: Female Female Reproductive History Menstrual Age of Menarche: 12 control method: none Total pregnancies: 4 Full term: 3 Number of Living Children: 3 Ab spontaneous: 1 Date of last pap smear: 06/08/21 (negative) History of abnormal pap smear: Yes Date of Mammogram: 04/05/23 Review of Systems Const All systems reviewed & are unremarkable except as noted in HPI and below Reports as per HPI Eyes Reports no additional complaints ENT Reports no additional complaints Card Reports no additional complaints Resp Reports no additional complaints GI Reports as per HPI and Reports no additional complaints Reports as per HPI Musc Reports no additional complaints Skin/Breast Reports as per HPI Neuro Reports no additional complaints Psych Reports no additional complaints Endo Reports no additional complaints Colton/Lymph Reports no additional complaints Aller/Immun Reports no additional complaints Physical Exam Vital Signs: Last Vital Signs BP 130/84 12/12/23 14:02 BMI result Body Mass Index 26.9 Const General: cooperative, healthy appearing, no acute distress, well developed and alert Orientation/consciousness: patient oriented x3 HEENT Head: Yes normal to inspection Eyes General: appearance normal, both eyes and all related structures Neck Neck: Yes normal visual inspection Thyroid: Thyroid normal Chest Chest palpation & inspection: normal inspection of the chest and other (no puckering, dimpling, peau de orange, retraction, discharge, masses) Breast/axilla inspection: normal inspection of the breasts Breast/axilla palpation: normal palpation of the breasts Resp Effort & Inspection: normal respiratory effort GI Inspection: Yes normal to inspection Palpation (GI): Soft to palpation Rectal Exam - Female: deferred General: Yes bladder normal to palpation External Female Exam: normal external appearance and normal appearance of the urethra Speculum Exam - Vagina: normal appearance of the vagina, normal palpation and normal vaginal discharge Speculum Exam - Cervix: normal appearance of the cervix and normal palpation Bimanual exam- vagina & uterus: normal bimanual exam, normal palpation, uterine size normal, bladder normal to palpation, normal palpation and non-tender Bimanual Exam- Adnexa, other: no masses Skin General skin exam: no rashes or lesions noted Rashes: no rashes Neuro General: patient oriented x3 Cognition (Neuro): normal cognition Extrem General: Yes normal to inspection Psych Attitude: cooperative Thought process: Normal thought process present Assessment & Plan Assessment & Plan (1) Encounter for well woman exam with routine gynecological exam: Code(s): Z01.419 - Encounter for gynecological examination (general) (routine) without abnormal findings Category: Medical (2) Abnormal uterine bleeding (AUB): Code(s): N93.9 - Abnormal uterine and vaginal bleeding, unspecified Category: Medical Plan Discussed: Current recommendations for pap smears per ASCCP guidelines. Breast awareness and periodic breast exams. Maintain a healthy lifestyle including a well balanced diet and routine exercise. Use condoms for STI and prevention. Pelvic ultrasound, follow up office for test results were may need to have an EMB possible polypectomy. Patient prefers female providers only and would want a referral back to [facility] [place] if indicated per discussion today. Encouraged tobacco cessation. Mammogram yearly. Colonoscopy >45, or at risk sooner. Patient verbalizes understanding and agrees to the plan of care. She was given opportunity to ask questions and all questions were answered to the best of my ability. RTO in one year for annual boatbuilder wood examination. This note is constructed using voice recognition software. While every effort has been made to ensure accuracy, protein scientist errors may have been included. Orders: Orders Pap Smear Today N93.9 - Abnormal uterine and vaginal bleeding, unspecified US pelvic and transvaginal Today N84.0 - Polyp of corpus uteri, N93.9 - Abnormal uterine and vaginal bleeding, unspecified, Z01.419 - Encounter for gynecological examination (general) (routine) without abnormal findings Coding Level of Care Code Est Pt Prev Care 40-64y(32545) Diagnoses Encounter for well woman exam with routine gynecological exam Z01.419 Abnormal uterine bleeding (AUB) N93.9
== END 2023-12-12 14:36 | disposition home or self-care (01) ==
PROVIDERS: PCP Internal Medicine; Visit Provider Advanced Practice Midwife
DX: Z01.419 Encounter for gynecological examination (general) (routine) without abnormal findings (principal); N93.9 Abnormal uterine and vaginal bleeding, unspecified
CPT/HCPCS: 99396

== ENCOUNTER 2023-12-12 13:57 | Outpatient (REF) | payer OTHER, SELFPAY ==
[2023-12-19 12:49] LABS: HPV mRNA E6/E7 rflx Not Detected (Not Detected)
== END 2023-12-12 13:58 | disposition home or self-care (01) ==
LOC: HO.LNP 13:57
PROVIDERS: PCP Internal Medicine; Visit Provider Advanced Practice Midwife
DX: N93.9 Abnormal uterine and vaginal bleeding, unspecified (principal)
CPT/HCPCS: 87624; 88142; 99396

== ENCOUNTER 2023-12-18 14:58 | Outpatient (REF) | payer OTHER, SELFPAY ==
--- NOTE | ~2023-12-18 | US_ITS ---
EXAMINATION: US PELVIS CLINICAL INFORMATION: Abnormal vaginal bleeding, irregular, salpingo-oophorectomy and left and right posterior patient's statement. Correlation with surgical history recommended for confirmation. COMPARISON: Pelvic ultrasound May 02, 2022. TECHNIQUE: Ultrasound of the pelvis is performed using both transabdominal and transvaginal transducers along with Doppler. Transvaginal imaging is performed due to inadequate visualization transabdominally. FINDINGS: The uterus is anteverted and measures 7.9 x 4.7 x 5.8 cm. A 1.3 x 1.1 x 1.3 cm uterine mass characteristic of a fibroid. No significant free fluid. Uterine configuration raises the possibility of a congenital anomaly such as an arcuate uterus. Endometrial thickness is 7 mm. Left ovary not visualized. Per clinical history provided, left ovary is surgically absent. Right ovary measures 3.0 x 3.4 x 3.0 cm, volume 16.0 mL. Right ovarian 3.1 x 2.5 x 2.8 cm cyst appears simple. Previous exam demonstrated 2.6 cm right ovarian follicular cyst and a 2.1 x 1.2 x 1.8 cm exophytic or paraovarian cyst on the right. US/US pelvic and transvaginal IMPRESSION: 1. Heterogeneous endometrium with thickness of 7 mm. Correlation with menstrual history recommended to determine further management. 2. A 1.3 cm uterine mass was not previously identified and is close to the margin of the endometrium. 3. A 3.3 cm right ovarian simple cyst. Previous exam demonstrated 2.6 cm right ovarian cyst and 2.1 cm exophytic or parovarian cyst on the right. 4. Correlation with surgical history and clinical exam recommended to determine further management including possible follow-up imaging in 6-8 weeks.
== END 2023-12-18 14:59 | disposition home or self-care (01) ==
LOC: HO.US 14:58
PROVIDERS: PCP Internal Medicine; Visit Provider Advanced Practice Midwife
DX: N93.9 Abnormal uterine and vaginal bleeding, unspecified (principal); N84.0 Polyp of corpus uteri; Z01.419 Encounter for gynecological examination (general) (routine) without abnormal findings
CPT/HCPCS: 76830; 76856

== ENCOUNTER 2024-01-03 15:07 | Outpatient (AMB) | payer OTHER, SELFPAY ==
[2024-01-03 15:08] VITALS: BP 142/81; PULSE 97; BMI 26.9
--- NOTE | 2024-01-03 15:08 | A.OFFVIS_ITS ---
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 Pt c/o; reports no complaints at this time. 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 She denies any new complaints. She denies any bleeding per rectum. She denies any problems or changes with bowel habits. She says she feels well overall. [facility] Medical History Complex ovarian cyst AIN grade III Anal polyp Surgical History History of hysteroscopy History of left salpingo-oophorectomy History of vulvectomy History of loop electrical excision procedure (LEEP) History of surgical removal of lesion (~2021) Hx of colonoscopy Family History Father Throat cancer Paternal Grandmother Breast cancer Social History Are you a primary personal care aide to a significant other at home: No Do you presently have visiting nurse or other home services: No Alcohol intake: current Alcohol intake frequency: 0-2 drinks per day Patient Tobacco Use Status: Current everyday Tobacco user Tobacco use type: Cigarette Cigarette Packs Per Day: 0.5 Cigarettes Per Day: 10.0 Second Hand Smoke Exposure: No Gender identity: Female Female Reproductive History Menstrual Age of Menarche: 12 Review of Systems Const Denies chills and Denies fever(s) Card Denies chest pain, Denies dyspnea and Denies dyspnea on exertion Resp Denies cough, Denies dyspnea and Denies dyspnea on exertion GI Denies hematochezia and Denies change in bowel habits Denies hematuria Musc Denies back pain and Denies limited range of motion Neuro Denies focal weakness and Denies convulsions Psych Denies depression and Denies mood swings Physical Exam Const General: comfortable and no acute distress Orientation/consciousness: patient oriented x3 Neck Neck: Yes no lymphadenopathy Resp Auscultation: clear to auscultation bilaterally Cardio Rhythm: regular rhythm GI Other: Rectal exam shows no perianal lesions, small external hemorrhoids, no abnormality on the perianal skin Palpation (GI): Soft to palpation, nontender and no guarding Neuro General: patient oriented x3 Office Procedures Anoscopy She was in karen-knife position. The anoscope was gently inserted. A full examination of the anal canal was done. There were no lesions seen. There was no ulceration or any abnormal mucosa. There was no induration on digital exam. There was no bleeding. 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 There was no induration on digital exam I will see her again in about 6 months to repeat the anoscopy. Otherwise, she seems to be doing well overall after incidental finding of AIN 3 on her hemorrhoidectomy specimen in 2021. She understands the plan and is comfortable with this. Coding Level of Care Code Est Pt Level 3 (88905) Diagnoses AIN grade III D01.3 CPT Codes Details - CPT: 90540-[id number] ([id number])
== END 2024-01-03 15:26 | disposition home or self-care (01) ==
PROVIDERS: PCP Internal Medicine; Visit Provider Surgery
DX: D01.3 Carcinoma in situ of anus and anal canal (principal)
CPT/HCPCS: 46600; 99213

== ENCOUNTER → 2024-01-03 15:07 | Outpatient (BNVA) | payer OTHER, SELFPAY | PROVIDERS: PCP Internal Medicine; Visit Provider Surgery | DX: D01.3 Carcinoma in situ of anus and anal canal (principal) | CPT/HCPCS: 46600; 99212 ==

== ENCOUNTER 2024-02-21 15:38 | Outpatient (AMB) | payer OTHER, SELFPAY ==
--- NOTE | 2024-02-21 15:41 | A.OFFVIS_ITS ---
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 She has a history of a LEEP, last Pap in 2023 was negative. History of abnormal bleeding since 2021 had last EMB during anesthesia during her treatment with Dr. Calderón for SHIRA 3. Hx. of AIN. PFSH Medical History Complex ovarian cyst AIN grade III Anal polyp Surgical History History of hysteroscopy History of left salpingo-oophorectomy History of vulvectomy History of loop electrical excision procedure (LEEP) History of surgical removal of lesion (~2021) Hx of colonoscopy Family History Father Throat cancer Paternal Grandmother Breast cancer Social History Are you a primary summer child caregiver to a significant other at home: No Do you presently have visiting nurse or other home services: No Alcohol intake: current Alcohol intake frequency: 0-2 drinks per day Patient Tobacco Use Status: Current everyday Tobacco user Tobacco use type: Cigarette Cigarette Packs Per Day: 0.5 Cigarettes Per Day: 10.0 Second Hand Smoke Exposure: No Gender identity: Female Female Reproductive History Menstrual Age of Menarche: 12 Review of Systems Const All systems reviewed & are unremarkable except as noted in HPI and below Endo Reports no additional complaints Physical Exam Const General: cooperative, healthy appearing and no acute distress Psych Appearance: well kempt Attitude: cooperative Thought process: Normal thought process present Results Reviewed Results Reviewed: [address] [address] Ultrasound Report Signed Patient: Allison Fernández MR#: [id number] : 1980 Acct:[id number] Age/Sex: 43 / F ADM Date: 12/18/23 Loc: HO.US Attending Dr: Amber Faust CNM Ordering Physician: Amber Faust CNM Date of Service: 12/18/23 Procedure(s): US pelvic and transvaginal Accession Number(s): [id number] cc: Heriberto Cordero MD; Amber Faust~ EXAMINATION: US PELVIS CLINICAL INFORMATION: Abnormal vaginal bleeding, irregular, salpingo-oophorectomy and left and right posterior patient's statement. Correlation with surgical history recommended for confirmation. COMPARISON: Pelvic ultrasound May 02, 2022. TECHNIQUE: Ultrasound of the pelvis is performed using both transabdominal and transvaginal transducers along with Doppler. Transvaginal imaging is performed due to inadequate visualization transabdominally. FINDINGS: The uterus is anteverted and measures 7.9 x 4.7 x 5.8 cm. A 1.3 x 1.1 x 1.3 cm uterine mass characteristic of a fibroid. No significant free fluid. Uterine configuration raises the possibility of a congenital anomaly such as an arcuate uterus. Endometrial thickness is 7 mm. Left ovary not visualized. Per clinical history provided, left ovary is surgically absent. Right ovary measures 3.0 x 3.4 x 3.0 cm, volume 16.0 mL. Right ovarian 3.1 x 2.5 x 2.8 cm cyst appears simple. Previous exam demonstrated 2.6 cm right ovarian follicular cyst and a 2.1 x 1.2 x 1.8 cm exophytic or paraovarian cyst on the right. US/US pelvic and transvaginal IMPRESSION: 1. Heterogeneous endometrium with thickness of 7 mm. Correlation with menstrual history recommended to determine further management. 2. A 1.3 cm uterine mass was not previously identified and is close to the margin of the endometrium. 3. A 3.3 cm right ovarian simple cyst. Previous exam demonstrated 2.6 cm right ovarian cyst and 2.1 cm exophytic or parovarian cyst on the right. 4. Correlation with surgical history and clinical exam recommended to determine further management including possible follow-up imaging in 6-8 weeks. Dictated By: Sarah Caballero MD Signed By: <Electronically signed by Sarah Caballero MD in OV> 01/02/24 0718 DD/ 1530 TD/TT: Can Doffer: Assessment & Plan Assessment & Plan (1) Abnormal uterine bleeding (AUB): Code(s): N93.9 - Abnormal uterine and vaginal bleeding, unspecified Category: Medical (2) Encounter to discuss test results: Code(s): Z71.2 - Person consulting for explanation of examination or test findings Plan Discussed: Ultrasound findings reviewed. Report notes a uterine mass most likely fibroid. Recommended EMB versus hysteroscopy, patient very undecided unsure what to do I recommend she have a consult to discuss with Dr. Ramirez. All of her questions and concerns were addressed to the best of my ability and shared decision making. She is agreeable to the plan of care. Consult appointment to be scheduled. This note is constructed using voice recognition software. While every effort has been made to ensure accuracy, touch up painter hand errors may have been included. Coding Level of Care Code Est Pt Level 3 (75167) Diagnoses Abnormal uterine bleeding (AUB) N93.9 Encounter to discuss test results Z71.2
== END 2024-02-22 07:36 | disposition home or self-care (01) ==
PROVIDERS: PCP Internal Medicine; Visit Provider Advanced Practice Midwife
DX: N93.9 Abnormal uterine and vaginal bleeding, unspecified (principal); Z71.2 Person consulting for explanation of examination or test findings
CPT/HCPCS: 99213

== ENCOUNTER → 2024-02-21 15:38 | Outpatient (BNVA) | payer OTHER, SELFPAY | PROVIDERS: PCP Internal Medicine; Visit Provider Advanced Practice Midwife | DX: N93.9 Abnormal uterine and vaginal bleeding, unspecified (principal); Z71.2 Person consulting for explanation of examination or test findings | CPT/HCPCS: 99212 ==

== ENCOUNTER 2024-04-03 08:38 | Outpatient (AMB) | payer OTHER, SELFPAY ==
--- NOTE | 2024-04-03 08:40 | A.OFFVIS_ITS ---
Vital Signs 04/03/24 08:43 Height 5 ft 3 in Weight 149 lb 14.629 oz BMI 26.6 Intake Visit Reasons: consult EMB/ Hysterscopy per BM Allergies No Known Allergies Allergy (Verified 02/21/24 15:41) HPI Comments Details: Presenting referred from Amber Faust CNM regarding abnormal uterine bleeding. The patient has been having irregular menstrual cycles over the last few months. Last co testing was in 12/21 was negative Last mammogram was 04/22 was BI-RADS 1 Pelvic ultrasound was done recently and showed the following: The uterus is anteverted and measures 7.9 x 4.7 x 5.8 cm. A 1.3 x 1.1 x 1.3 cm uterine mass characteristic of a fibroid. No significant free fluid. Uterine configuration raises the possibility of a congenital anomaly such as an arcuate uterus. Endometrial thickness is 7 mm. Left ovary not visualized. Per clinical history provided, left ovary is surgically absent. Right ovary measures 3.0 x 3.4 x 3.0 cm, volume 16.0 mL. Right ovarian 3.1 x 2.5 x 2.8 cm cyst appears simple. Previous exam demonstrated 2.6 cm right ovarian follicular cyst and a 2.1 x 1.2 x 1.8 cm exophytic or paraovarian cyst on the right. The patient has history of SHIRA 3 status post partial vulvectomy, is being followed up by Gyne Onc at [facility], a follow-up appointment scheduled in 06/23 The patient has history of AIN 3 status post excision by Dr. Stanton and is being followed up routinely by him regarding this issue [facility] Medical History Complex ovarian cyst AIN grade III Anal polyp Surgical History History of hysteroscopy History of left salpingo-oophorectomy History of vulvectomy History of loop electrical excision procedure (LEEP) History of surgical removal of lesion (~2021) Hx of colonoscopy Family History Father Throat cancer Paternal Grandmother Breast cancer Social History Are you a primary home visit field care manager to a significant other at home: No Do you presently have visiting nurse or other home services: No Alcohol intake: current Alcohol intake frequency: 0-2 drinks per day Patient Tobacco Use Status: Current everyday Tobacco user Tobacco use type: Cigarette Cigarette Packs Per Day: 0.5 Cigarettes Per Day: 10.0 Second Hand Smoke Exposure: No Gender identity: Female Female Reproductive History Menstrual Age of Menarche: 12 Review of Systems Const All systems reviewed & are unremarkable except as noted in HPI and below Reports as per HPI and Reports no additional complaints GI Reports no additional complaints Reports no additional complaints Physical Exam Vital Signs: BMI result Body Mass Index 26.6 Assessment & Plan Assessment & Plan (1) Abnormal uterine bleeding (AUB): Code(s): N93.9 - Abnormal uterine and vaginal bleeding, unspecified Category: Medical Plan: CBC, TSH, prolactin, HCG, ordered. Discussed with the patient the different causes of abnormal bleeding including thyroid disorders, uterine and ovarian pathology, endometrial hyperplasia, carcinoma and other potential causes. Discussed with the patient the work up including CBC (to r/o anemia), TSH, prolactin, pelvic Ultrasound, endometrial biopsy to r/o endometrial pathology. All questions answered and the patient verbalized understanding. Instructed the patient to schedule an appointment for an endometrial biopsy in 2 weeks. (2) Uterine myoma: Code(s): D25.9 - Leiomyoma of uterus, unspecified Category: Medical Plan: Discussed with the patient the findings on pelvic ultrasound & the risk of myosarcoma; discussed with the patient the options of treatment including expectant management versus hysterectomy; the pros and cons, risks benefits of each approach were discussed with the patient including the fact that in cases of myosarcoma, surgical treatment can lead to early diagnosis and positively affects the prognosis; after further discussion, the patient decided to proceed with expectant management. Will repeat pelvic ultrasound periodically. Instructions given to patient to call in case any of the following occurs: pressure symptoms, abnormal uterine bleeding, pelvic pain; and to schedule a six-months pelvic ultrasound and a follow-up appointment . All questions answered, the patient verbalized understanding and agreed with the plan . Orders: Orders TSH reflex Free T4 Today N93.9 - Abnormal uterine and vaginal bleeding, unspecified Complete Blood Count no Diff Today N93.9 - Abnormal uterine and vaginal bleeding, unspecified HCG Quantitative Today N93.9 - Abnormal uterine and vaginal bleeding, unspecified Prolactin Today N93.9 - Abnormal uterine and vaginal bleeding, unspecified US pelvic and transvaginal Today D25.9 - Leiomyoma of uterus, unspecified Coding Level of Care Code Est Pt Level 3 (46813) Diagnoses Abnormal uterine bleeding (AUB) N93.9 Uterine myoma D25.9
[2024-04-03 08:43] VITALS: BMI 26.6
== END 2024-04-03 09:20 | disposition home or self-care (01) ==
PROVIDERS: PCP Internal Medicine; Visit Provider Obstetrics & Gynecology
DX: N93.9 Abnormal uterine and vaginal bleeding, unspecified (principal); D25.9 Leiomyoma of uterus, unspecified
CPT/HCPCS: 99213

== ENCOUNTER 2024-04-03 08:38 | Outpatient (REF) | payer OTHER, SELFPAY ==
[2024-04-03 10:04] LABS: Hemoglobin 14.8 g/dl (12.0-16.0); Mean Corpuscular HGB Conc 32.9 g/dl (31.0-35.0); Mean Corpuscular Hemoglobin 32.6 pg (27.0-33.0); Mean Corpuscular Volume 99.1 fL (80.0-98.0); Mean Platelet Volume 10.2 fL (9.4-12.3); Platelet Count 319 X10*3/uL (160-400); Red Blood Count 4.54 X10*6/uL (4.20-5.50); Red Cell Distribution Width 12.8 % (11.0-16.0); White Blood Count 10.2 X10*3/uL (4.8-10.8)
[2024-04-03 10:54] LABS: HCG Quantitative < 2 mIU/mL; TSH reflex Free T4 1.85 uIU/mL (0.32-4.0)
[2024-04-04 18:04] LABS: Prolactin 13.1 ng/mL
== END 2024-04-03 08:39 | disposition home or self-care (01) ==
LOC: HO.LAB 08:38
PROVIDERS: PCP Internal Medicine; Visit Provider Obstetrics & Gynecology
DX: N93.9 Abnormal uterine and vaginal bleeding, unspecified (principal); D25.9 Leiomyoma of uterus, unspecified
CPT/HCPCS: 36415; 84146; 84443; 84702; 85027; 99212

== ENCOUNTER 2024-04-10 14:17 | Outpatient (REF) | payer OTHER, SELFPAY ==
--- NOTE | ~2024-04-10 | MM_ITS ---
EXAMINATION: MM SCREENING DIGITAL BREAST TOMOSYNTHESIS, BILATERAL CLINICAL INFORMATION: Screening. Asymptomatic. COMPARISON: Mammography: Comparison is made with available priors TECHNIQUE: Digital breast mammography with tomosynthesis is performed in both the craniocaudal and mediolateral oblique views along with computer-aided detection (CAD). FINDINGS: There are scattered areas of fibroglandular density (ACR BI-RADS breast composition Category b). There are no significant masses, abnormal calcifications, or other abnormalities. MM/MM tomosynthesis screening BI IMPRESSION: No mammographic evidence of malignancy. ASSESSMENT: BI-RADS BI-RADS 1 - Negative RECOMMENDATION: Routine annual mammography screening. 1 year F/U This examination should not preclude the clinical evaluation of a suspicious palpable abnormality. This patient's information was entered into a reminder system with a target due date for their next mammogram. Electronically signed by: Joana Sanchez DO 04/24/2024 10:56 AM EDT
== END 2024-04-10 14:18 | disposition home or self-care (01) ==
LOC: HO.MAMMO 14:17
PROVIDERS: PCP Internal Medicine; Visit Provider Internal Medicine
DX: Z12.31 Encounter for screening mammogram for malignant neoplasm of breast (principal)
CPT/HCPCS: 77063; 77067

== ENCOUNTER → 2024-04-10 14:20 | Outpatient (BNV) | payer OTHER, SELFPAY | PROVIDERS: PCP Internal Medicine; Visit Provider Internal Medicine | DX: Z12.31 Encounter for screening mammogram for malignant neoplasm of breast (principal) | CPT/HCPCS: 77063; 77067 ==

== ENCOUNTER 2024-04-24 13:07 | Outpatient (REF) | payer OTHER, SELFPAY | END 2024-04-24 13:08 | disposition home or self-care (01) | LOC: HO.LNP 13:07 | PROVIDERS: PCP Internal Medicine; Visit Provider Obstetrics & Gynecology | DX: N93.9 Abnormal uterine and vaginal bleeding, unspecified (principal) | CPT/HCPCS: 58100; 81025; 88305 ==

== ENCOUNTER 2024-04-24 13:07 | Outpatient (AMB) | payer OTHER, SELFPAY ==
--- NOTE | 2024-04-24 13:11 | MHC.OFFVIS ---
Vital Signs 04/24/24 13:12 Height 5 ft 3 in Weight 149 lb 14.629 oz BMI 26.6 Intake Visit Reasons: EMB Correctional Counselor/Case Manager Required: No Information Interpreted: non-clinical & clinical Relationship Executive: Relationship Executive Present (Aileen FENTON) Accompanied by: Self / Same As Patient Allergies No Known Allergies Allergy (Verified 04/24/24 13:19) Post menopausal: Yes HPI Comments Details: Presenting for EMB [facility] Medical History Complex ovarian cyst AIN grade III Anal polyp Surgical History History of hysteroscopy History of left salpingo-oophorectomy History of vulvectomy History of loop electrical excision procedure (LEEP) History of surgical removal of lesion (~2021) Hx of colonoscopy Family History Father Throat cancer Paternal Grandmother Breast cancer Social History Are you a primary medicare compliance auditor to a significant other at home: No Do you presently have visiting nurse or other home services: No Alcohol intake: current Alcohol intake frequency: 0-2 drinks per day Patient Tobacco Use Status: Current everyday Tobacco user Tobacco use type: Cigarette Cigarette Packs Per Day: 0.5 Cigarettes Per Day: 10.0 Second Hand Smoke Exposure: No Gender identity: Female Female Reproductive History Menstrual Age of Menarche: 12 Review of Systems Const All systems reviewed & are unremarkable except as noted in HPI and below Reports as per HPI and Reports no additional complaints GI Reports no additional complaints Reports no additional complaints Physical Exam Vital Signs: BMI result Body Mass Index 26.6 Office Procedures Endometrial Biopsy Details: The patient was counseled regarding the indication and benefits of endometrial sampling to rule out endometrial pathology including not limited to endometrial hyperplasia or endometrial cancer and others; The alternatives (Either do nothing vs. hysteroscopy D&C) & the risks were discussed with the patient including but not limited: pain, uterine perforation, bleeding, infection, possible injury to bladder, bowel, ureter, possible need for blood transfusion with all its possible risks. The patient verbalized understanding all questions answered and signed consent. Urine test done in the office was negative The patient was placed into the dorsal lithotomy position; a speculum was inserted in the vagina. Using aseptic technique for the procedure, the cervix was cleansed with Betadine. The anterior lip of the cervix was grasped with a single tooth tenaculum. The uterus was sounded to 7 cm with a 4 mm Pipelle was used. Tissues samples were obtained and placed in formalin, in a patient labeled container and sent to the pathology department. At the end of the procedure, there was minimal bleeding noted The patient tolerated the procedure well and was discharged in good condition with the following instructions: Nothing in the vagina until the bleeding stops. No sex until the bleeding stops, to call if any of the following occurs: fever (>100.4), flu-like symptoms, abdominal pain, heavy bleeding, four smelling vaginal discharge. The patient was instructed to schedule a Follow up appointment in 2 weeks to discuss pathology results of the biopsy and treatment options. This note was generated with a voice recognition program. Some errors may have been overlooked during the review of this note. Sometimes these errors may affect the content or meaning of a given sentence. [id number] Biopsy Results AMB Test Urine AMB Test Urine Negative Last Edit by Aileen Urbina CMA on 04/24/24 13:20 Results Reviewed Results Reviewed: Laboratory Last Values Tst Clinic Negative 04/24/24 13:20 Assessment & Plan Assessment & Plan (1) Abnormal uterine bleeding (AUB): Code(s): N93.9 - Abnormal uterine and vaginal bleeding, unspecified Category: Medical Plan: EMB done, see procedure Orders: Orders AMB HCG Urine Test Today Z32.02 - Encounter for test, result negative AMB Endometrial Biopsy Today N93.9 - Abnormal uterine and vaginal bleeding, unspecified Coding Level of Care Code Procedure Only Diagnoses Abnormal uterine bleeding (AUB) N93.9 CPT Codes Endometrial Biopsy - CPT: 45427-Vljzzaipahj Biopsy ([id number])
[2024-04-24 13:12] VITALS: BMI 26.6
== END 2024-04-24 13:28 | disposition home or self-care (01) ==
PROVIDERS: PCP Internal Medicine; Visit Provider Obstetrics & Gynecology
DX: N93.9 Abnormal uterine and vaginal bleeding, unspecified (principal); Z32.02 Encounter for pregnancy test, result negative
CPT/HCPCS: 58100

== ENCOUNTER 2024-06-12 12:22 | Outpatient (AMB) | payer OTHER, SELFPAY ==
--- NOTE | 2024-06-12 12:31 | MHC.OFFVIS ---
Vital Signs 06/12/24 12:34 Height 5 ft 3 in Weight 149 lb 14.629 oz BMI 26.6 Intake Visit Reasons: EMB results Feltmaker And Weigher Required: No Information Interpreted: non-clinical & clinical Accompanied by: Sister Allergies No Known Allergies Allergy (Verified 06/12/24 12:35) HPI Comments Details: The patient is presenting for follow-up to discuss the results of her abnormal uterine bleeding workup and options of treatment. The following workup was done.: H&H= TSH, hCG, GC and chlamydia were negative. Endometrial biopsy pathology showed following: Disordered proliferative endometrium; no atypia or hyperplasia identified. Co testing was done was negative. Mammogram was BI-RADS 1 Pelvic ultrasound showed the following: IMPRESSION: 1. Heterogeneous endometrium with thickness of 7 mm. Correlation with menstrual history recommended to determine further management. 2. A 1.3 cm uterine mass was not previously identified and is close to the margin of the endometrium. 3. A 3.3 cm right ovarian simple cyst. Previous exam demonstrated 2.6 cm right ovarian cyst and 2.1 cm exophytic or parovarian cyst on the right. 4. Correlation with surgical history and clinical exam recommended to determine further management including possible follow-up imaging in 6-8 weeks. [facility], [facility] Medical History Complex ovarian cyst AIN grade III Anal polyp Surgical History History of hysteroscopy History of left salpingo-oophorectomy History of vulvectomy History of loop electrical excision procedure (LEEP) History of surgical removal of lesion (~2021) Hx of colonoscopy Family History Father Throat cancer Paternal Grandmother Breast cancer Social History Are you a primary child care specialist to a significant other at home: No Do you presently have visiting nurse or other home services: No Alcohol intake: current Alcohol intake frequency: 0-2 drinks per day Patient Tobacco Use Status: Current everyday Tobacco user Tobacco use type: Cigarette Cigarette Packs Per Day: 0.5 Cigarettes Per Day: 10.0 Second Hand Smoke Exposure: No Gender identity: Female Female Reproductive History Menstrual Age of Menarche: 12 Review of Systems Const All systems reviewed & are unremarkable except as noted in HPI and below Reports as per HPI and Reports no additional complaints GI Reports no additional complaints Reports no additional complaints Physical Exam Vital Signs: BMI result Body Mass Index 26.6 Assessment & Plan Assessment & Plan (1) Abnormal uterine bleeding (AUB): Code(s): N93.9 - Abnormal uterine and vaginal bleeding, unspecified Category: Medical Plan: Discussed with the patient the results of the work up done and options of treatment including but not limited to BCP's, cyclic Progesterone, Mirena IUD, endometrial ablation and hysterectomy. All pros, cons, risks and benefits of each option were discussed with the patient and the patient decided to go ahead with cyclic Provera, so a more detailed discussion re: Progesterone treatment including mechanism of action, benefits (regular menses, endometrial protection form unopposed estrogen and reduction in the risk of endometrial hyperplasia and/or cancer ...), risks (Thrombosis, mood changes, weight gain, breast soreness, ? increased breast ca, others). Instructions were given to use a back- up method for contraception since this is not a method control, take the medication 1 tablet daily starting day 15-24 and to schedule a 3 months follow-up appointment; patient verbalized understanding and agreed with the plan. (2) Uterine myoma: Code(s): D25.9 - Leiomyoma of uterus, unspecified Category: Medical Plan: Discussed with the patient the findings on pelvic ultrasound & the risk of myosarcoma; discussed with the patient the options of treatment including expectant management versus hysterectomy; the pros and cons, risks benefits of each approach were discussed with the patient including the fact that in cases of myosarcoma, surgical treatment can lead to early diagnosis and positively affects the prognosis; after further discussion, the patient decided to proceed with expectant management. Will repeat pelvic ultrasound periodically. Instructions given to patient to call in case any of the following occurs: pressure symptoms, abnormal uterine bleeding, pelvic pain; and to schedule a six-months pelvic ultrasound from previous ultrasound and a follow-up appointment . All questions answered, the patient verbalized understanding and agreed with the plan . Orders: Orders US pelvic and transvaginal Today D25.9 - Leiomyoma of uterus, unspecified Medications: New medroxyprogesterone (Provera) start Provera 1 tablet daily from day 15-24 cyclically every months, day 1 being 1st day of menses 10 mg PO DAILY 10 days 30 tabs 0RF Coding Level of Care Code Est Pt Level 3 (67933) Diagnoses Abnormal uterine bleeding (AUB) N93.9 Uterine myoma D25.9
[2024-06-12 12:34] VITALS: BMI 26.6
== END 2024-06-12 13:51 | disposition home or self-care (01) ==
PROVIDERS: PCP Internal Medicine; Visit Provider Obstetrics & Gynecology
DX: N93.9 Abnormal uterine and vaginal bleeding, unspecified (principal); D25.9 Leiomyoma of uterus, unspecified
CPT/HCPCS: 99213

== ENCOUNTER → 2024-06-12 12:22 | Outpatient (BNVA) | payer OTHER, SELFPAY | PROVIDERS: PCP Internal Medicine; Visit Provider Obstetrics & Gynecology | DX: N93.9 Abnormal uterine and vaginal bleeding, unspecified (principal); N83.291 Other ovarian cyst, right side; D25.9 Leiomyoma of uterus, unspecified | CPT/HCPCS: 99212 ==

== ENCOUNTER 2024-10-01 12:52 | Outpatient (REF) | payer OTHER, SELFPAY ==
--- NOTE | 2024-10-02 15:17 | MHC.AU.HA3 ---
Hearing Instrument Follow-Up- Binaural Date of Visit: 10/01/24 Right Ear: Make, Model, Color, Serial Number: [id number] Provider Service Representative Repair Warranty: 05/21/2018 Provider Service Representative Loss and Damage Warranty: 05/21/2018 Battery Size: 312 Type of Wax Guard: Cerustop Dispensed By: [facility] Date of Fittin05/03/2016 Left Ear: Make, Model, Color, Serial Number: [id number] Provider Service Representative Repair Warranty: 05/21/2018 Provider Service Representative Loss and Damage Warranty: 05/21/2018 Battery Size: 312 Type of Wax Guard: Cerustop Dispensed By: [facility] Date of Fittin05/03/2016 Follow-Up Summary: Hearing aids dropped off not working . Found both aids in need of cleaning, left wax guard clogged, right missing wax guard and gasket, microphones clogged. Cleaned, brushed and vacuumed mics, vacuumed logistics officer ports, replaced left wax guard, right cannot hold a wax guard. Listening check positive left, weak right. Recommend pursue new amplification vs. repair right. L/M with patient asking for call back. She could pick these up and wear them while waiting on new aids, will need an order for updated hearing test. Recommendations: Recommendations: Left message, waiting to hear back from patient. Diagnosis Code(s): Primary Diagnosis: H90.6 Signature: Provider: Hanane Carlson, [facility]
== END 2024-10-01 12:53 | disposition home or self-care (01) ==
LOC: HO.HAP 12:52
PROVIDERS: Visit Provider Internal Medicine
DX: Z13.89 Encounter for screening for other disorder (principal)

== ENCOUNTER 2024-10-04 13:40 | Outpatient (REF) | payer OTHER, SELFPAY | END 2024-10-04 13:41 | disposition home or self-care (01) | LOC: HO.HAP 13:40 | PROVIDERS: Visit Provider Internal Medicine | DX: Z46.1 Encounter for fitting and adjustment of hearing aid (principal); H90.6 Mixed conductive and sensorineural hearing loss, bilateral | CPT/HCPCS: 92593; 99499 ==

== ENCOUNTER 2024-10-07 12:53 | Outpatient (AMB) | payer OTHER, SELFPAY ==
--- NOTE | 2024-10-07 12:54 | A.OFFVIS_ITS ---
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 Pt c/o; reports no complaints. 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 She denies any new complaints. She denies any bleeding per rectum. She denies any problems or changes with bowel habits. She she continues to feel well overall. [facility] Medical History (Updated 10/07/24 @ 13:13 by Heriberto Stanton MD) Internal hemorrhoids History of anal dysplasia Complex ovarian cyst AIN grade III Anal polyp Surgical History History of hysteroscopy History of left salpingo-oophorectomy History of vulvectomy History of loop electrical excision procedure (LEEP) History of surgical removal of lesion (~2021) Hx of colonoscopy Family History Father Throat cancer Paternal Grandmother Breast cancer Social History Are you a primary care companion to a significant other at home: No Do you presently have visiting nurse or other home services: No Alcohol intake: current Alcohol intake frequency: 0-2 drinks per day Patient Tobacco Use Status: Current everyday Tobacco user Tobacco use type: Cigarette Cigarette Packs Per Day: 0.5 Cigarettes Per Day: 10.0 Second Hand Smoke Exposure: No Gender identity: Female Female Reproductive History Menstrual Age of Menarche: 12 Review of Systems Const Denies chills and Denies fever(s) Card Denies chest pain, Denies dyspnea and Denies dyspnea on exertion Resp Denies cough, Denies dyspnea and Denies dyspnea on exertion GI Denies hematochezia and Denies change in bowel habits Denies hematuria Musc Denies back pain and Denies limited range of motion Neuro Denies focal weakness and Denies convulsions Psych Denies depression and Denies mood swings Physical Exam Vital Signs: Last Vital Signs Pulse 101 H 10/07/24 13:02 BP 145/78 H 10/07/24 13:02 BMI result Body Mass Index 28.0 Const General: comfortable and no acute distress Resp Effort & Inspection: normal respiratory effort GI Other: No perianal lesions on rectal exam Palpation (GI): Soft to palpation and nontender Office Procedures Anoscopy She was in karen-knife position. The anoscope was gently inserted. A full examination of the anal canal was done. She had this internal hemorrhoid that appears to be prominent on the posterior aspect of the anal canal without any lesions. There were no ulcers or any other abnormal looking mucosa. There was no bleeding. There was no induration. [id number] Assessment & Plan Assessment & Plan (1) History of anal dysplasia: Code(s): Z87.19 - Personal history of other diseases of the digestive system Category: Medical Plan: Current exam including anoscopy does not reveal any lesions or any suspicious findings She does have an internal hemorrhoid that appears to be prominent. I offered her the option of rubber band ligation as this seems to prolapse easily. Explained to her the technique of rubber band ligation and I discussed with the to expect postoperatively. She says she wants to proceed and she will be scheduled for this in the office. (2) Internal hemorrhoids: Code(s): K64.8 - Other hemorrhoids Category: Medical Plan: She wants to proceed with rubber band ligation here in the office. Coding Level of Care Code Est Pt Level 3 (78290) Diagnoses History of anal dysplasia Z87.19 Internal hemorrhoids K64.8 CPT Codes Details - CPT: 69281-Hbhwrnnq ([id number])
[2024-10-07 13:02] VITALS: BP 145/78; PULSE 101; BMI 28.0
== END 2024-10-07 13:15 | disposition home or self-care (01) ==
PROVIDERS: PCP Internal Medicine; Visit Provider Surgery
DX: K64.8 Other hemorrhoids (principal); Z87.19 Personal history of other diseases of the digestive system
CPT/HCPCS: 46600; 99213

== ENCOUNTER → 2024-10-07 12:53 | Outpatient (BNVA) | payer OTHER, SELFPAY | PROVIDERS: PCP Internal Medicine; Visit Provider Surgery | DX: K64.8 Other hemorrhoids (principal); Z87.19 Personal history of other diseases of the digestive system | CPT/HCPCS: 46600; 99212 ==

== ENCOUNTER 2024-10-28 13:53 | Outpatient (REF) | payer OTHER, SELFPAY ==
--- NOTE | ~2024-10-28 | US_ITS ---
CLINICAL HISTORY: D25.9 - Leiomyoma of uterus, unspecified Transabdominal and transvaginal pelvic ultrasound Comparison: 12/18/2023 Findings: Uterus 7.6 x 3.6 x 5.0 cm. Endometrium 4 mm. No significant free fluid. Right ovary 3.0 x 1.8 x 1.6 cm. No significant focal abnormality. Left ovary not identified. Impression: No significant abnormality This document has been electronically signed by: Juanpablo Griffin MD on 10/28/2024 19:28:25
== END 2024-10-28 13:54 | disposition home or self-care (01) ==
LOC: HO.US 13:53
PROVIDERS: PCP Internal Medicine; Visit Provider Obstetrics & Gynecology
DX: D25.9 Leiomyoma of uterus, unspecified (principal)
CPT/HCPCS: 76830; 76856

== ENCOUNTER → 2024-10-28 13:55 | Outpatient (BNV) | payer OTHER, SELFPAY | PROVIDERS: PCP Internal Medicine; Visit Provider Radiology Diagnostic Radiology | DX: D25.9 Leiomyoma of uterus, unspecified (principal) | CPT/HCPCS: 76830; 76856 ==

== ENCOUNTER 2024-12-26 13:34 | Outpatient (REF) | payer OTHER, SELFPAY ==
--- NOTE | 2024-12-26 14:33 | MHC.AU.MED ---
Medical Clearance for Hearing Instrumentation Date: 12/26/24 Patient Name: Allison Fernández Date of : 1980 Primary Care Provider: Keena Velasquez MD We have seen your patient on 12/26/24 and have determined that they are a candidate for amplification (See accompanying report). Specifically, they would benefit from: Hearing aid use in both ears There is a statute that addresses Medical Evaluation Requirements prior to fitting a patient with a hearing aid. According to [place] statute [facility] CMR:6.03(1), (a) General. Except as provided in 265 CMR 6.03(1)(b), a workers' compensation hearings officer shall not sell a hearing aid unless the prospective user has presented to the workers' compensation hearings officer a written statement signed by a licensed physician that states that the patient's hearing loss has been medically evaluated and the patient may be considered a candidate for a hearing aid. The medical evaluation must have taken place within the preceding six months. Please note: Due to the [place] Statute referenced above, we cannot accept a signature other than that of a licensed physician. RAMP JOCKEY and PA signatures cannot be accepted. I am in agreement with the above recommendation. There is no medical contraindication for hearing instrumentation. Physician Signature Date Physician Name (Printed)
--- NOTE | 2024-12-26 16:18 | MHC.AU.HA1 ---
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 Due to age of devices, new HAs recommended at that time. Advised follow up with ENT to discuss possible medical intervention, although Allison previously not interested and has since been a successful BELLA user. Allison prefers same style, but inquired about bluetooth connectivity with Android. Discussed battery vs rechargeable. Opted for battery-powered ITCs compatible with Android. Impressions taken, bilaterally, without incident. In hold drawer pending medical clearance. Hearing Aid Prescription: Based on the individual?s shared listening needs, communication environments, dexterity, desire for connectivity, and personal preferences, the following prescription for amplification has been made: Right ear: Make, Model, Color: Phonak Virto P70-312 ITC Color: [place] Battery Size: 312 Left ear: Left ear prescription to be same as Right Hearing Aid above: Make, Model, Color: Phonak Virto P70-312 ITC Color: [place] Battery Size: 312 Plan of Care: Patient wishes to purchase hearing aids as prescribed Action Taken/Action Needed: Medical Clearance to be requested from PCP/ENT. Hearing Instrument Fitting to be scheduled when materials arrive Primary Diagnosis: H90.0 Conductive Hearing Loss, Bilateral Signature: Provider: Hanane Mello, CCC-A
== END 2024-12-26 13:35 | disposition home or self-care (01) ==
LOC: HO.SH 13:34
PROVIDERS: Visit Provider Internal Medicine
DX: Z01.118 Encounter for examination of ears and hearing with other abnormal findings (principal); Z46.1 Encounter for fitting and adjustment of hearing aid; H90.0 Conductive hearing loss, bilateral
CPT/HCPCS: 92557; 92567; 92591; V5275

== ENCOUNTER 2025-01-08 12:02 | Outpatient (AMB) | payer OTHER, SELFPAY ==
--- NOTE | 2025-01-08 12:02 | MHC.OFFVIS ---
Intake Visit Reasons: ultrasound results Allergies No Known Allergies Allergy (Verified 10/07/24 13:04) HPI Comments Details: The patient scheduled a telehealth visit for follow-up ultrasound regarding uterine myoma seen on previous pelvic ultrasound. The patient is doing well with no complaints no abnormal uterine bleeding, pelvic pressure or pain. Pelvic ultrasound done recently showed the following: Findings: Uterus 7.6 x 3.6 x 5.0 cm. Endometrium 4 mm. No significant free fluid. Right ovary 3.0 x 1.8 x 1.6 cm. No significant focal abnormality. Left ovary not identified. Impression: No significant abnormality [facility] Medical History Internal hemorrhoids History of anal dysplasia Complex ovarian cyst AIN grade III Anal polyp Surgical History History of hysteroscopy History of left salpingo-oophorectomy History of vulvectomy History of loop electrical excision procedure (LEEP) History of surgical removal of lesion (~2021) Hx of colonoscopy Family History Father Throat cancer Paternal Grandmother Breast cancer Social History Are you a primary urgent care physician to a significant other at home: No Do you presently have visiting nurse or other home services: No Alcohol intake: current Alcohol intake frequency: 0-2 drinks per day Patient Tobacco Use Status: Current everyday Tobacco user Tobacco use type: Cigarette Cigarette Packs Per Day: 0.5 Cigarettes Per Day: 10.0 Second Hand Smoke Exposure: No Gender identity: Female Female Reproductive History Menstrual Age of Menarche: 12 Review of Systems Const All systems reviewed & are unremarkable except as noted in HPI and below Reports as per HPI and Reports no additional complaints GI Reports no additional complaints Reports no additional complaints Telehealth Telehealth Telehealth Platform: Telephone Location of provider rendering services: practice address Location of patient: address on file Patient Identification confirmed using: Name, : Yes Telehealth method: voice only Patient verbally consented to treatment: Yes Patient verbally consented to billing insurance company: Yes Patient informed of any privacy concerns related to visit: Yes Minutes spent on Phone/Video with Pt.: 1 Assessment & Plan Assessment & Plan (1) Uterine myoma: Code(s): D25.9 - Leiomyoma of uterus, unspecified Category: Medical Plan: Discussed with the patient the finding on ultrasound no evidence of uterine myoma, the patient was reassured. Instructions given the patient to call in case of pelvic pain and or abnormal bleeding. All questions answered, the patient verbalized understanding. I spent a total of 20 minutes reviewing the chart, talking to the patient via video and documenting in the medical record. Coding Level of Care Code Tele Est Pt Level 3 (03132) Diagnoses Uterine myoma D25.9
== END 2025-01-08 13:47 | disposition home or self-care (01) ==
LOC: HO.HWS 12:02
PROVIDERS: PCP Internal Medicine; Visit Provider Obstetrics & Gynecology
DX: D25.9 Leiomyoma of uterus, unspecified (principal)
CPT/HCPCS: 99213

== ENCOUNTER 2025-03-21 08:13 | Day surgery (SDC) | payer OTHER, SELFPAY ==
--- NOTE | 2025-03-20 08:42 | HO.ANESPROP2 ---
Documented by User: Allyssa Jain NP 03/20/25 08:42 HPI - Anesthesia Eval Consult details Narrative: 44yo F for Colonoscopy PMFSH Active Problems Active Problems: All Active Problems Hearing loss (Acute) Internal hemorrhoids (Acute) History of anal dysplasia (Acute) Ovarian cyst (Acute) Uterine myoma (Acute) Endometrial polyp (Acute) Abnormal uterine bleeding (AUB) (Acute) Encounter for well woman exam with routine gynecological exam (Acute) Abnormal uterine bleeding (AUB) (Acute) Hot flashes (Acute) Acute vaginitis (Acute) AIN grade III (Acute) Anal polyp (Acute) History of colon polyps (Acute) Hemorrhoids (Acute) Condyloma acuminata (Acute) Encounter for emergency contraception (Acute) Hx of abnormal cervical Pap smear (Acute) Potential exposure to STD (Acute) Past Medical History Medical History Internal hemorrhoids History of anal dysplasia Complex ovarian cyst AIN grade III Anal polyp Family History Family History Father Throat cancer Paternal Grandmother Breast cancer Family history of problems with anesthesia: No Surgical History Surgical History History of hysteroscopy History of left salpingo-oophorectomy History of vulvectomy History of loop electrical excision procedure (LEEP) History of surgical removal of lesion (~2021) Hx of colonoscopy History of Problems with Anesthesia: No Social History Social History Are you a primary critical care rn to a significant other at home: No Do you presently have visiting nurse or other home services: No Alcohol intake: current Alcohol intake frequency: 0-2 drinks per day Patient Tobacco Use Status: Current everyday Tobacco user Tobacco use type: Cigarette Cigarette Packs Per Day: 0.5 Cigarettes Per Day: 10.0 Second Hand Smoke Exposure: No Use of substances other than those prescribed or required for medical reasons: Yes Substance Use Frequency: Daily Are you DNR?: No Advance Directives: No Advance Directives Information Provided: Yes Gender identity: Female Meds Allergies Allergy/AdvReac Type Severity Reaction Status Date / Time No Known Allergies Allergy Verified 10/07/24 13:04 Home Medications ?Medication ?Instructions ?Recorded ?Confirmed ?Last Taken ?Type bupropion HCl 150 mg 24 hr tablet, 150 mg PO QAM 06/12/23 06/12/23 Unknown History extended release zolpidem 10 mg tablet (Ambien) 10 mg PO BEDTIME 12/12/23 Unknown History quetiapine 50 mg tablet mg PO DAILY 10/07/24 Unknown History temazepam 15 mg capsule mg PO BEDTIME 10/07/24 Unknown History venlafaxine 37.5 mg mg PO DAILY 10/07/24 Unknown History capsule,extended release 24 hr venlafaxine 75 mg capsule,extended mg PO DAILY 10/07/24 Unknown History release 24 hr Assessment and Plan Assessment Anesthesia Assessment: Chart Reviewed Final Anesthetic Review Family History of Problems with Anesthesia: No History of Problems with Anesthesia: No Documented by User: Sagrario Cox MD 03/21/25 09:54 [facility] Past Medical History Medical History Internal hemorrhoids History of anal dysplasia Complex ovarian cyst AIN grade III Anal polyp Family History Family History Father Throat cancer Paternal Grandmother Breast cancer Surgical History Surgical History History of hysteroscopy History of left salpingo-oophorectomy History of vulvectomy History of loop electrical excision procedure (LEEP) History of surgical removal of lesion (~2021) Hx of colonoscopy Social History Social History Are you a primary critical care rn to a significant other at home: No Do you presently have visiting nurse or other home services: No Alcohol intake: current Alcohol intake frequency: 0-2 drinks per day Patient Tobacco Use Status: Current everyday Tobacco user Tobacco use type: Cigarette Cigarette Packs Per Day: 0.5 Cigarettes Per Day: 10.0 Second Hand Smoke Exposure: No Use of substances other than those prescribed or required for medical reasons: Yes Substance Use Frequency: Daily Are you DNR?: No Advance Directives: No Advance Directives Information Provided: Yes Gender identity: Female Meds Allergies Allergy/AdvReac Type Severity Reaction Status Date / Time No Known Allergies Allergy Verified 10/07/24 13:04 Home Medications ?Medication ?Instructions ?Recorded ?Confirmed ?Last Taken ?Type bupropion HCl 150 mg 24 hr tablet, 150 mg PO QAM 06/12/23 06/12/23 Unknown History extended release zolpidem 10 mg tablet (Ambien) 10 mg PO BEDTIME 12/12/23 Unknown History quetiapine 50 mg tablet mg PO DAILY 10/07/24 Unknown History temazepam 15 mg capsule mg PO BEDTIME 10/07/24 Unknown History venlafaxine 37.5 mg mg PO DAILY 10/07/24 Unknown History capsule,extended release 24 hr venlafaxine 75 mg capsule,extended mg PO DAILY 10/07/24 Unknown History release 24 hr Exam Airway Mallampati Class: II TM Dist: >3cm Neck ROM: Full Heart: rrr Lungs: cta Assessment and Plan Assessment Anesthesia Assessment: Anesthesia Plan Discussed (large amount of marijuana use) Final Anesthetic Review NPO: Yes ASA Class: II Final Preanesthetic Review: No Changes in Pt Med Stat, Meds/Allgs Chart Reviewed and Consent Obtained/Reviewed Patient Risk: Low Procedure Risk: Low Anesthetic Plan Anesthetic Plan: MAC: Disposition: Standard PACU
[2025-03-21 08:40] VITALS: BP 144/90; PULSE 88; RESP 16; TEMP 36.7; O2SAT 95
[2025-03-21 08:51] LABS: UPreg QC Valid YES
[2025-03-21] MEDS: Lactated Ringers 1,000 ML 100 ML IVCONT (08:55)
--- NOTE | 2025-03-21 09:55 | MHC.SHP ---
Pre-Procedural Eval Section A - 24 Hr Update-Section A only Date of Service: 03/21/25 The patient is an INPATIENT: No The patient has been examined within 24 hours of the surgical procedure. The History & Physical has been completed within 30 days and I have reviewed it.: No Section B - Complete if H&P > 30 days Chief Complaint: Surveillance of colon polyps Relevant Family History (Specify if Yes): No Relevant Social History: Tobacco Use Present Medications: see Short Stay Collaborative assessment Medical History: Significant History (Condylomata acuminata, AIN , hx of colon polyps) History of Previous Operations: Relevant previous surgery/procedure and date(s) (History of colonoscopy, status post left salpingo-oophorectomy) Allergies: Allergies Allergy/AdvReac Type Severity Reaction Status Date / Time No Known Allergies Allergy Verified 10/07/24 13:04 Review of Systems Sugical H&P ROS: Negative: Constitution, Cardiovascular, Respiratory and Gastrointestinal Exam Surgical H&P Exam: Normal: Heart, Normal: Lungs, Normal: Extremities and Normal: Abdomen Plan Diagnosis/Plan: Change (Proceed with colonoscopy) I have reviewed the history and physical and performed a pertinent physical examination on my patient. No changes have occurred unless specified. Time Spent With Patient Time: Total time managing care of this patient today ____ minutes.
[2025-03-21 11:18] VITALS: BP 93/65; PULSE 90; RESP 16; TEMP 36.6; O2SAT 94
--- NOTE | 2025-03-21 11:19 | HO.OPN-COLON ---
Colonoscopy Operative Note Operative Note Date of Service: 03/21/25 Narrative: COLONOSCOPY TILL CECUM WITH SNARE POLYPECTOMY Pre-op diagnosis: Surveillance for colon polyps. Post-op diagnosis:? Colon polyps, Diverticulosis, hemorrhoids Endoscopist:? Chavez Woods MD Anesthesia:?MAC Consent: Indications for the procedure and potential complications of bleeding, perforation, reaction to medications and missed diagnosis were discussed with the patient and informed consent was obtained. Instrument: Olympus PCF H 190 L variable stiffness pediatric colonoscope Monitoring: Vital signs and clinical assessment, intermittent blood pressure monitoring, continuous EKG monitoring, Pulse oximetry and Carbon Dioxide monitoring were done throughout the procedure. Please see anesthesia flowsheet. Colon withdrawl time was 18 minutes. Procedure: The patient was placed in the left lateral decubitis position and pre-procedure medications were administered. After a digital rectal examination of the ano-rectum, the video colonoscope was inserted into the rectum and advanced through the colon to the cecum. The colonoscope was slowly withdrawn in a retrograde panoramic fashion and the colon mucosa was carefully examined including a retroflexed view of the rectum. Findings and interventions are described below. Procedure Difficulty: without difficulty Findings: Terminal Ileum: Not evaluated Cecum: Normal Ascending Colon: Normal Transverse Colon: Normal Descending Colon: Normal Sigmoid Colon: A 6-7 mm sessile polyp - removed with a cold snare Moderate diverticulosis Rectum: A few 4-5 mm diminutive appearing polyps in the rectosigmoid - 1 removed with a cold snare. A 6-7 mm sessile polyp in the distal rectum (next to the anal verge) - removed with a cold snare (polyp # 2) Ano-rectum: Small internal hemorrhoids Colon preparation: Good after copious irrigation. [place] Bowel Preparation Scale Right colon; 2 Transverse colon: 2 Left colon; 2 (0 = Unprepared colon segment with mucosa not seen due to solid stool that cannot be cleared. 1 = Portion of mucosa of the colon segment seen, but other areas of the colon segment not well seen due to staining, residual stool and/or opaque liquid. 2 = Minor amount of residual staining, small fragments of stool and/or opaque liquid, but mucosa of colon segment seen well. 3 = Entire mucosa of colon segment seen well with no residual staining, small fragments of stool or opaque liquid) Impression and Post Procedure Diagnosis: Colonoscopy Findings: Three small polyps were removed Moderate diverticulosis seen in the sigmoid colon Small hemorrhoids on retroflexed exam. Plan: I will send a letter with biopsy results Repeat Colonoscopy in 5 years if polyps are adenomatous and due to history of adenomatous colon polyps. (Dulcolax 10 mg daily for 5 days prior to next colon appointment) Above findings were reviewed with the patient and relevant handouts were given and the discharge area. BIOPSIES SHOWED: A. Colon, sigmoid, polypectomy: Tubular adenoma; negative for high-grade dysplasia. B. Rectum, polyp #1, polypectomy: Hyperplastic polyp. C. Rectum, polyp #2, polypectomy: Clinically polypoid colonic mucosa noted; negative for a hyperplastic or neoplastic process Letter sent with biopsy results. Patient was placed on the colonoscopy recall list for repeat colonoscopy in 5 years.
[2025-03-21 11:33] VITALS: BP 133/85; PULSE 84; RESP 16; TEMP 36.6; O2SAT 99
== END 2025-03-21 11:49 | disposition home or self-care (01) ==
PROVIDERS: Nurse Practitioner; Visit Provider Internal Medicine Gastroenterology
PROC: 0DJD8ZZ Inspection of Lower Intestinal Tract, Via Natural or Artificial Opening Endoscopic (ICD-10-PCS; CPT 45378; principal; 2025-03-21 10:10)
DX: Z12.11 Encounter for screening for malignant neoplasm of colon (principal); Z86.0101 Personal history of adenomatous and serrated colon polyps; D12.5 Benign neoplasm of sigmoid colon; K62.1 Rectal polyp; K57.30 Diverticulosis of large intestine without perforation or abscess without bleeding; K64.8 Other hemorrhoids; N83.299 Other ovarian cyst, unspecified side; A63.0 Anogenital (venereal) warts; Z79.899 Other long term (current) drug therapy; Z98.890 Other specified postprocedural states; F17.210 Nicotine dependence, cigarettes, uncomplicated
CPT/HCPCS: 45385; 81025; 88305; J1596; J2003; J2704

== ENCOUNTER → 2025-03-21 08:13 | Outpatient (BNV) | payer OTHER, SELFPAY | PROVIDERS: Visit Provider Internal Medicine Gastroenterology | DX: Z12.11 Encounter for screening for malignant neoplasm of colon (principal); K63.5 Polyp of colon | CPT/HCPCS: 45385 ==

== ENCOUNTER 2025-04-10 12:58 | Outpatient (REF) | payer OTHER, SELFPAY ==
--- NOTE | 2025-04-10 13:53 | MHC.AU.HA2 ---
Hearing Instrument Fitting- Adult- Binaural Date of Visit: 04/10/25 Hearing Instruments Dispensed: Right Ear: Make, Model, Color, Serial Number: Phonak Virto [id number] ITC Color: [place] [id number] Bagging Salvager Repair Warranty: 04/24/2028 Bagging Salvager Loss and Damage Warranty: 04/24/2028 [facility] Service Plan: 04/10/2026 Battery Size: 312 Type of Wax Guard: Cerustop Left Ear: Make, Model, Color, Serial Number: Phonak Virto [id number] ITC Color: [place] [id number] Bagging Salvager Repair Warranty: 04/24/2028 Bagging Salvager Loss and Damage Warranty: 04/24/2028 [facility] Service Plan: 04/10/2026 Battery Size: 312 Type of Wax Guard: Cerustop Summary of Fitting: Fit with and oriented to binaural Phonak Virto [id number] ITC HAs. Verified to NALNL2 targets. Ran feedback regional project manager. Good subjective comfort and benefit reported. Allison notes old hearing aids broke about 1 month ago, happy to be getting new ones today. Reviewed maintenance and precautions. Long time hearing aid user. Reviewed VC use with wheel. Connected with phone and tested streaming. Recommendations: Recommendations: A hearing instrument follow-up was scheduled. Diagnosis Code(s): Primary Diagnosis: H90.0 Conductive Hearing Loss, Bilateral Signature: Provider: Hanane Carlson, [facility]
== END 2025-04-10 12:59 | disposition home or self-care (01) ==
LOC: HO.HAP 12:58
PROVIDERS: Visit Provider Internal Medicine
DX: Z46.1 Encounter for fitting and adjustment of hearing aid (principal); H90.0 Conductive hearing loss, bilateral
CPT/HCPCS: V5011; V5020; V5160; V5259; V5266

== ENCOUNTER 2025-04-18 13:18 | Outpatient (REF) | payer OTHER, SELFPAY ==
--- NOTE | ~2025-04-18 | MM_ITS ---
EXAMINATION: MM SCREENING DIGITAL BREAST TOMOSYNTHESIS, BILATERAL CLINICAL INFORMATION: Screening. Asymptomatic. COMPARISON: Mammography: Comparison is made with available priors TECHNIQUE: Digital breast mammography with tomosynthesis is performed in both the craniocaudal and mediolateral oblique views along with computer-aided detection (CAD). FINDINGS: There are scattered areas of fibroglandular density (ACR BI-RADS breast composition Category b). There are no significant masses, abnormal calcifications, or other abnormalities. MM/MM tomosynthesis screening BI IMPRESSION: No mammographic evidence of malignancy. ASSESSMENT: BI-RADS BI-RADS 1 - Negative RECOMMENDATION: Routine annual mammography screening. 1 year F/U This examination should not preclude the clinical evaluation of a suspicious palpable abnormality. This patient's information was entered into a reminder system with a target due date for their next mammogram. Electronically signed by: Joana Sanchez DO 04/22/2025 08:42 AM EDT
== END 2025-04-18 13:19 | disposition home or self-care (01) ==
LOC: HO.MAMMO 13:18
DX: Z12.31 Encounter for screening mammogram for malignant neoplasm of breast (principal)
CPT/HCPCS: 77063; 77067

== ENCOUNTER → 2025-04-18 13:30 | Outpatient (BNV) | payer OTHER, SELFPAY | PROVIDERS: Visit Provider Internal Medicine | DX: Z12.31 Encounter for screening mammogram for malignant neoplasm of breast (principal) | CPT/HCPCS: 77063; 77067 ==